=== PATIENT | female | born 1940 | race Caucasian/White ===

== ENCOUNTER 2017-10-15 12:40 | Inpatient (IN) ==
[2017-10-15] MEDS ORDERED: methylPREDNISolone SOD SUC 125 MG/2 ML VIAL IV STA (16:57)
[2017-10-15] MEDS ORDERED: LEVOFLOXACIN INJ 500 MG in PREMIX 1 EACH IV STA (16:57)
[2017-10-15] MEDS: ALBUTEROL 2.5 MG/3 ML NEB RESP TX SCH (17:11)
[2017-10-15] MEDS ORDERED: LEVOFLOXACIN INJ 100 ML IV ONE (17:20)
[2017-10-15 17:21] LABS: Basophils % 0.2 % (0.0-0.8); Eosinophils # 0.1 10*3/uL (0.0-0.87); Eosinophils % 0.7 % (0.00-10.9); Hematocrit 31.3 VOL% (35.7-47.0); Hemoglobin 9.1 GM/DL (12.0-16.0); Immature Granulocytes % 4.3 %; Immature Granulocytes Absolute 0.69 #; Lymphocytes % 6.1 % (21.3-54.2); Mean Corpuscular HGB Conc 29.1 GM/DL (32-36); Mean Corpuscular Hemoglobin 23 PG (27-34); Mean Corpuscular Volume 80.5 FL (87-102); Mean Platelet Volume 9.9 FL (9.6-12.0); Monocytes # 0.5 10*3/uL (0.11-0.8); Monocytes % 3.4 % (1.7-12.7); NRBC # 0.03 10*3/uL; Neutrophils # 13.7 10*3/uL (1.4-7.4); Neutrophils % 85.3 % (38.7-73.9); Platelet Count 275 T/CUMM (130-400); Red Blood Count 3.89 MC/CUMM (3.8-5.5); Red Cell Distribution Width 18.3 % (9.3-17.3)
[2017-10-15] MEDS ORDERED: methylPREDNISolone SOD SUC 125 MG/2 ML VIAL ONE (17:21)
[2017-10-15 17:32] LABS: Alanine Aminotransferase 44 U/L (13-56); Albumin 3.4 G/DL (3.4-5.0); Alkaline Phosphatase 101 U/L (45-117); Aspartate Amino Transferase 85 U/L (0-37); Bilirubin,Total < 0.39 MG/DL (0.2-1.0); Blood Urea Nitrogen 18 MG/DL (7-18); Calcium 7.9 MG/DL (8.5-10.1); Potassium 3.5 MMOL/L (3.5-5.1); Sodium 136 MMOL/L (136-145); Troponin I Only < 0.015 NG/ML (0.00-0.045)
[2017-10-15] MEDS ORDERED: DEXTROSE 50% 25 GM/50 ML SYRINGE IV ONE (17:38)
[2017-10-15] MEDS ORDERED: DEXTROSE 50% 25 GM/50 ML VIAL IV STA (17:38)
[2017-10-15 17:40] LABS: Glucose 40 MG/DL (74-106)
[2017-10-15] MEDS ORDERED: GLUCAGON 1 MG VIAL IM PRN (18:25)
[2017-10-15] MEDS ORDERED: DEXTROSE 50% 25 GM/50 ML VIAL IV PRN (18:25)
[2017-10-15] MEDS ORDERED: ONDANSETRON 4 MG/2 ML VIAL IV PRN (18:25)
[2017-10-15] MEDS ORDERED: ALBUTEROL 2.5 MG/3 ML NEB RESP TX PRN (18:25)
[2017-10-15] MEDS: MAGNESIUM OXIDE 400 MG TABLET PO SCH (22:44)
[2017-10-15] MEDS: GABAPENTIN 100 MG CAPSULE PO SCH (22:44)
[2017-10-15] MEDS: SERTRALINE 100 MG TABLET PO SCH (22:45)
[2017-10-15] MEDS: INSULIN LISPRO 100 UNIT/ML SUBCUT SCH (22:45)
[2017-10-15] MEDS: SODIUM CHLORIDE 0.9% 1,000 ML IV SCH (22:45)
[2017-10-15] MEDS: DOCUSATE SODIUM 100 MG CAPSULE PO SCH (22:46)
[2017-10-15] MEDS: methylPREDNISolone SOD SUC 40 MG/1 ML VIAL IV SCH (22:46)
[2017-10-15] MEDS: traMADol 50 MG TABLET PO PRN (22:47)
[2017-10-16] MEDS: FLUTICASONE/SALMETEROL 500-50 DISKUS 14 DOSE INH SCH ×3 (00:07→21:48)
[2017-10-16] MEDS: ALBUTEROL/IPRATROPIUM 3 ML NEB RESP TX SCH ×4 (04:07→20:06)
[2017-10-16] MEDS: methylPREDNISolone SOD SUC 40 MG/1 ML VIAL IV SCH ×3 (05:56→21:49)
[2017-10-16 06:22] LABS: Basophils % 0.2 % (0.0-0.8); Hemoglobin 7.7 GM/DL (12.0-16.0); Immature Granulocytes % 6.1 %; Lymphocytes # 0.4 10*3/uL (1.4-4.0); Lymphocytes % 5.7 % (21.3-54.2); Mean Corpuscular HGB Conc 29.6 GM/DL (32-36); Mean Corpuscular Hemoglobin 23 PG (27-34); Mean Corpuscular Volume 78.3 FL (87-102); Monocytes # 0.1 10*3/uL (0.11-0.8); Monocytes % 1.5 % (1.7-12.7); Neutrophils # 5.7 10*3/uL (1.4-7.4); Neutrophils % 86.5 % (38.7-73.9); Platelet Count 187 T/CUMM (130-400); Red Blood Count 3.32 MC/CUMM (3.8-5.5); Red Cell Distribution Width 18.1 % (9.3-17.3); White Blood Count 6.5 T/CUMM (4-12)
[2017-10-16 06:41] LABS: Calcium 7.8 MG/DL (8.5-10.1); Osmolality,Calculated 289.1 MOS/KG (273-304); Potassium 4.7 MMOL/L (3.5-5.1)
[2017-10-16 07:03] LABS: Anisocytosis 1+; Band Neutrophils 3 % (0-10); Lymphocytes 3 % (20-55); Metamyelocytes 3 %; Microcytosis 1+; Nucleated Red Blood Cells 1 (0-5); Segmented Neutrophils 85 % (50-85); Tear Drop Cells Few; Total Cells Counted 100
[2017-10-16 07:04] LABS: Hypochromasia 1+; Ovalocytes Slight; Platelet Estimate Adequate
[2017-10-16 08:19] LABS: % Iron Saturation 9.4 % (18-50)
[2017-10-16] MEDS: INSULIN LISPRO 100 UNIT/ML SUBCUT SCH ×4 (08:46→21:51)
[2017-10-16] MEDS: SODIUM CHLORIDE 0.9% 1,000 ML IV SCH ×2 (08:46→21:57)
[2017-10-16] MEDS: MAGNESIUM OXIDE 400 MG TABLET PO SCH ×2 (08:47→21:48)
[2017-10-16] MEDS: GABAPENTIN 100 MG CAPSULE PO SCH ×3 (08:47→21:50)
[2017-10-16] MEDS: DOCUSATE SODIUM 100 MG CAPSULE PO SCH ×2 (08:47→21:49)
[2017-10-16] MEDS: PANTOPRAZOLE 40 MG TABLET PO SCH (08:47)
[2017-10-16] MEDS: ACETAMINOPHEN 325 MG TABLET PO PRN (08:48)
[2017-10-16] MEDS: traMADol 50 MG TABLET PO PRN (13:09)
[2017-10-16 14:49] LABS: Folate 8.8 NG/ML (5.4-24.0)
[2017-10-16] MEDS: LEVOFLOXACIN INJ 250 MG in PREMIX 1 EACH IV SCH (15:58)
[2017-10-16] MEDS: AMITRIPTYLINE 25 MG TABLET PO SCH (21:48)
[2017-10-16] MEDS: PERPHENAZINE 4 MG TABLET PO SCH (21:49)
[2017-10-16] MEDS: SERTRALINE 100 MG TABLET PO SCH (21:50)
[2017-10-17] MEDS: ALBUTEROL/IPRATROPIUM 3 ML NEB RESP TX SCH ×4 (01:51→19:45)
[2017-10-17] MEDS: methylPREDNISolone SOD SUC 40 MG/1 ML VIAL IV SCH ×3 (06:08→21:32)
[2017-10-17 07:23] LABS: Basophils % 0.1 % (0.0-0.8); Hematocrit 26.8 VOL% (35.7-47.0); Immature Granulocytes % 5.8 %; Immature Granulocytes Absolute 0.42 #; Lymphocytes # 0.6 10*3/uL (1.4-4.0); Lymphocytes % 7.7 % (21.3-54.2); Mean Corpuscular HGB Conc 29.9 GM/DL (32-36); Mean Corpuscular Hemoglobin 24 PG (27-34); Mean Corpuscular Volume 78.8 FL (87-102); Monocytes # 0.2 10*3/uL (0.11-0.8); NRBC # 0.02 10*3/uL; Neutrophils # 6.1 10*3/uL (1.4-7.4); Neutrophils % 83.4 % (38.7-73.9); Platelet Count 225 T/CUMM (130-400); Red Cell Distribution Width 17.9 % (9.3-17.3); White Blood Count 7.3 T/CUMM (4-12)
[2017-10-17 07:48] LABS: Calcium 8.8 MG/DL (8.5-10.1); Potassium 4.4 MMOL/L (3.5-5.1)
[2017-10-17 07:54] LABS: Band Neutrophils 3 % (0-10); Elliptocytes Few; Giant Platelets Few; Hypochromasia 1+; Lymphocytes 4 % (20-55); Microcytosis Slight; Platelet Estimate Adequate; Segmented Neutrophils 89 % (50-85); Total Cells Counted 100
[2017-10-17] MEDS: DOCUSATE SODIUM 100 MG CAPSULE PO SCH ×2 (08:17→20:40)
[2017-10-17] MEDS: MAGNESIUM OXIDE 400 MG TABLET PO SCH ×2 (08:17→20:40)
[2017-10-17] MEDS: AMITRIPTYLINE 25 MG TABLET PO SCH ×4 (08:17→20:41)
[2017-10-17] MEDS: INSULIN LISPRO 100 UNIT/ML SUBCUT SCH ×4 (08:17→20:43)
[2017-10-17] MEDS: GABAPENTIN 100 MG CAPSULE PO SCH ×3 (08:17→20:41)
[2017-10-17] MEDS: PANTOPRAZOLE 40 MG TABLET PO SCH (08:17)
[2017-10-17] MEDS: FLUTICASONE/SALMETEROL 500-50 DISKUS 14 DOSE INH SCH ×2 (08:18→20:44)
[2017-10-17] MEDS: PERPHENAZINE 4 MG TABLET PO SCH ×3 (08:23→20:40)
[2017-10-17] MEDS: ACETAMINOPHEN 325 MG TABLET PO PRN ×2 (09:09→20:41)
[2017-10-17] MEDS ORDERED: PHENOL 1.4% THROAT SPRAY 177 ML BOTTLE PO PRN (12:03)
[2017-10-17] MEDS: traMADol 50 MG TABLET PO PRN ×2 (12:08→16:58)
[2017-10-17] MEDS: LEVOFLOXACIN INJ 250 MG in PREMIX 1 EACH IV SCH (16:58)
[2017-10-17] MEDS: SODIUM CHLORIDE 0.9% 1,000 ML IV SCH (20:38)
[2017-10-17] MEDS: SERTRALINE 100 MG TABLET PO SCH (20:41)
[2017-10-18] MEDS: ALBUTEROL/IPRATROPIUM 3 ML NEB RESP TX SCH ×4 (00:34→20:06)
[2017-10-18] MEDS: methylPREDNISolone SOD SUC 40 MG/1 ML VIAL IV SCH ×3 (05:20→20:32)
[2017-10-18 06:56] LABS: Basophils % 0.1 % (0.0-0.8); Hematocrit 29.7 VOL% (35.7-47.0); Hemoglobin 8.6 GM/DL (12.0-16.0); Immature Granulocytes % 3.1 %; Immature Granulocytes Absolute 0.22 #; Lymphocytes # 0.8 10*3/uL (1.4-4.0); Lymphocytes % 10.8 % (21.3-54.2); Mean Corpuscular Hemoglobin 23 PG (27-34); Mean Corpuscular Volume 80.1 FL (87-102); Mean Platelet Volume 10.2 FL (9.6-12.0); Monocytes # 0.3 10*3/uL (0.11-0.8); Monocytes % 3.6 % (1.7-12.7); Neutrophils # 5.8 10*3/uL (1.4-7.4); Neutrophils % 82.4 % (38.7-73.9); Platelet Count 208 T/CUMM (130-400); Red Blood Count 3.71 MC/CUMM (3.8-5.5); Red Cell Distribution Width 17.6 % (9.3-17.3)
[2017-10-18 07:20] LABS: Microcytosis Slight; Platelet Estimate Normal; Tear Drop Cells Few
[2017-10-18 07:22] LABS: Calcium 8.9 MG/DL (8.5-10.1); Osmolality,Calculated 283.2 MOS/KG (273-304); Potassium 4.6 MMOL/L (3.5-5.1)
[2017-10-18] MEDS: traMADol 50 MG TABLET PO PRN ×2 (10:07→20:28)
[2017-10-18] MEDS: MAGNESIUM OXIDE 400 MG TABLET PO SCH ×2 (10:09→20:28)
[2017-10-18] MEDS: GABAPENTIN 100 MG CAPSULE PO SCH ×3 (10:09→20:28)
[2017-10-18] MEDS: DOCUSATE SODIUM 100 MG CAPSULE PO SCH ×2 (10:09→20:31)
[2017-10-18] MEDS: PANTOPRAZOLE 40 MG TABLET PO SCH (10:09)
[2017-10-18] MEDS: FLUTICASONE/SALMETEROL 500-50 DISKUS 14 DOSE INH SCH ×2 (10:10→20:31)
[2017-10-18] MEDS: AMITRIPTYLINE 25 MG TABLET PO SCH ×4 (10:10→20:28)
[2017-10-18] MEDS: PERPHENAZINE 4 MG TABLET PO SCH ×3 (10:10→20:28)
[2017-10-18] MEDS: ACETAMINOPHEN 325 MG TABLET PO PRN (16:40)
[2017-10-18] MEDS: LEVOFLOXACIN INJ 250 MG in PREMIX 1 EACH IV SCH (16:41)
[2017-10-18] MEDS: CARBIDOPA/LEVODOPA 25-100 MG TABLET PO SCH ×2 (16:51→20:28)
[2017-10-18] MEDS: SODIUM CHLORIDE 0.9% 1,000 ML IV SCH (16:52)
[2017-10-18] MEDS: SERTRALINE 100 MG TABLET PO SCH (20:29)
[2017-10-18] MEDS: INSULIN GLARGINE 100 UNIT/ML SUBCUT SCH (20:30)
[2017-10-19] MEDS: ALBUTEROL/IPRATROPIUM 3 ML NEB RESP TX SCH ×4 (01:44→20:05)
[2017-10-19] MEDS: methylPREDNISolone SOD SUC 40 MG/1 ML VIAL IV SCH (09:15)
[2017-10-19] MEDS: FLUTICASONE/SALMETEROL 500-50 DISKUS 14 DOSE INH SCH ×2 (09:16→22:16)
[2017-10-19] MEDS: DOCUSATE SODIUM 100 MG CAPSULE PO SCH ×2 (09:16→22:14)
[2017-10-19] MEDS: PERPHENAZINE 4 MG TABLET PO SCH ×4 (09:16→22:14)
[2017-10-19] MEDS: AMITRIPTYLINE 25 MG TABLET PO SCH ×5 (09:16→22:16)
[2017-10-19] MEDS: MAGNESIUM OXIDE 400 MG TABLET PO SCH ×3 (09:16→22:14)
[2017-10-19] MEDS: CARBIDOPA/LEVODOPA 25-100 MG TABLET PO SCH ×4 (09:16→22:14)
[2017-10-19] MEDS: PANTOPRAZOLE 40 MG TABLET PO SCH ×2 (09:16→13:45)
[2017-10-19] MEDS: GABAPENTIN 100 MG CAPSULE PO SCH ×4 (09:16→22:15)
[2017-10-19] MEDS ORDERED: LIDOCAINE 2% 5 ML VIAL ONE (11:51)
[2017-10-19] MEDS ORDERED: PROPOFOL 200 MG/20 ML VIAL IV ONE (11:51)
[2017-10-19] MEDS: SODIUM CHLORIDE 0.9% 1,000 ML IV SCH (13:49)
[2017-10-19] MEDS: INSULIN REGULAR 100 UNIT/ML SUBCUT SCH ×2 (16:47→22:14)
[2017-10-19] MEDS: LEVOFLOXACIN INJ 250 MG in PREMIX 1 EACH IV SCH (16:47)
[2017-10-19] MEDS: traMADol 50 MG TABLET PO PRN (16:48)
[2017-10-19] MEDS: INSULIN GLARGINE 100 UNIT/ML SUBCUT SCH (22:14)
[2017-10-19] MEDS: SERTRALINE 100 MG TABLET PO SCH (22:14)
[2017-10-20] MEDS: ALBUTEROL/IPRATROPIUM 3 ML NEB RESP TX SCH ×2 (00:39→07:52)
[2017-10-20] MEDS: INSULIN REGULAR 100 UNIT/ML SUBCUT SCH ×2 (07:51→12:02)
[2017-10-20] MEDS: CARBIDOPA/LEVODOPA 25-100 MG TABLET PO SCH (08:48)
[2017-10-20] MEDS: methylPREDNISolone SOD SUC 40 MG/1 ML VIAL IV SCH (08:48)
[2017-10-20] MEDS: MAGNESIUM OXIDE 400 MG TABLET PO SCH (08:48)
[2017-10-20] MEDS: ACETAMINOPHEN 325 MG TABLET PO PRN (08:49)
[2017-10-20] MEDS: AMITRIPTYLINE 25 MG TABLET PO SCH ×2 (08:49→08:51)
[2017-10-20] MEDS: PERPHENAZINE 4 MG TABLET PO SCH (08:50)
[2017-10-20] MEDS: DOCUSATE SODIUM 100 MG CAPSULE PO SCH ×2 (08:50→08:53)
[2017-10-20] MEDS: PANTOPRAZOLE 40 MG TABLET PO SCH (08:50)
[2017-10-20] MEDS: GABAPENTIN 100 MG CAPSULE PO SCH (08:50)
[2017-10-20] MEDS: SODIUM CHLORIDE 0.9% 1,000 ML IV SCH (08:50)
[2017-10-20] MEDS: FLUTICASONE/SALMETEROL 500-50 DISKUS 14 DOSE INH SCH (08:57)
[2017-10-20] MEDS: traMADol 50 MG TABLET PO PRN (10:33)
[2017-10-20 11:24] VITALS: BP 124/72
== END 2017-10-20 13:30 | disposition home or self-care (01) | DRG 194 ==
LOC: N.ED 12:40 → N.EDINP 17:31 → N.5E 17:59
PROVIDERS: ADMIT Family Medicine; ATTEND Family Medicine

== ENCOUNTER 2020-02-05 10:20 | Inpatient (IN) ==
[2020-02-05] MEDS ORDERED: ACETAMINOPHEN 500 MG TABLET PO STA (11:54)
[2020-02-05 11:56] LABS: Basophils % 0.3 % (0.0-0.8); Eosinophils % 0.3 % (0.00-10.9); Hematocrit 31.2 VOL% (35.7-47.0); Hemoglobin 9.8 GM/DL (12.0-16.0); Immature Granulocytes % 1.6 %; Immature Granulocytes Absolute 0.18 #; Lymphocytes # 0.4 10*3/uL (1.4-4.0); Lymphocytes % 3.3 % (21.3-54.2); Mean Corpuscular HGB Conc 31.4 GM/DL (32-36); Mean Corpuscular Volume 92.9 FL (87-102); Mean Platelet Volume 10.8 FL (9.6-12.0); Monocytes % 3.5 % (1.7-12.7); NRBC # 0.02 10*3/uL; Platelet Count 155 T/CUMM (130-400); Red Blood Count 3.36 MC/CUMM (3.8-5.5); Red Cell Distribution Width 16.2 % (9.3-17.3); White Blood Count 11.1 T/CUMM (4-12)
[2020-02-05 12:24] LABS: Anisocytosis 2+; Band Neutrophils 27 % (0-10); Lymphocytes 5 % (20-55); Metamyelocytes 1 %; Platelet Estimate Normal; Segmented Neutrophils 64 % (50-85); Total Cells Counted 100
[2020-02-05 12:25] LABS: Macrocytosis Slight; Polychromasia Slight; Tear Drop Cells Few
[2020-02-05] MEDS ORDERED: LEVOFLOXACIN INJ 500 MG in PREMIX 1 EACH IV STA (13:21)
[2020-02-05] MEDS ORDERED: cefTRIAXone 1,000 MG in SODIUM CHLORIDE 0.9% 100 ML IV STA (13:26)
[2020-02-05] MEDS ORDERED: cefTRIAXone 1,000 MG in SYRINGE 1 EACH IV STA (13:45)
[2020-02-05 14:13] LABS: Alanine Aminotransferase < 9 U/L (13-56); Albumin 3.4 G/DL (3.4-5.0); Alkaline Phosphatase 92 U/L (45-117); Aspartate Amino Transferase 7 U/L (0-37); Bilirubin,Total < 0.39 MG/DL (0.2-1.0); Blood Urea Nitrogen 22 MG/DL (7-18); Calcium 9.2 MG/DL (8.5-10.1); Estimated Glom Filtration Rate 24 ML/MIN; Glucose 245 MG/DL (74-106); Osmolality,Calculated 278.2 MOS/KG (273-304); Total Protein 6.9 G/DL (6.4-8.3)
[2020-02-05 14:26] LABS: Apearance,Urine CLOUDY (Clear); Bacteria,Urine Few /HPF (Few); Bilirubin,Urine Negative (Negative); Blood, Urine Small mg/dL (Negative); Glucose,Urine (UA) Negative (Negative); Ketones,Urine Negative (Negative); Nitrite,Urine Negative (Negative); Protein,Urine 30 MG/DL; RBC,Urine 24 /HPF (0-4); Urine Color Yellow (Yellow); Urine Specific Gravity 1.012 (1.001-1.035); Urine Urobilinogen < 2.0 EU/DL (0.2-1.0); WBC,Urine 451 /HPF (0-6)
[2020-02-05] MEDS ORDERED: SODIUM CHLORIDE 0.9% 1,000 ML IV STA (14:50)
[2020-02-05] MEDS ORDERED: GLUCAGON 1 MG VIAL IM PRN ×2 (15:56→17:03)
[2020-02-05] MEDS ORDERED: DEXTROSE 50% 25 GM/50 ML VIAL IV PRN ×2 (15:56→17:03)
[2020-02-05] MEDS: methylPREDNISolone SOD SUC 40 MG/1 ML VIAL IV SCH (16:17)
[2020-02-05] MEDS: INSULIN REGULAR 100 UNIT/ML SUBCUT SCH ×2 (17:02→20:23)
[2020-02-05] MEDS ORDERED: ONDANSETRON 4 MG/2 ML VIAL IV PRN (17:03)
[2020-02-05] MEDS: INSULIN LISPRO 100 UNIT/ML SUBCUT SCH ×2 (17:30→20:23)
[2020-02-05] MEDS: SODIUM CHLORIDE 0.9% 1,000 ML IV SCH (18:05)
[2020-02-05] MEDS: DOCUSATE SODIUM 100 MG CAPSULE PO SCH (20:23)
[2020-02-06] MEDS: methylPREDNISolone SOD SUC 40 MG/1 ML VIAL IV SCH ×3 (00:15→17:52)
[2020-02-06] MEDS: SODIUM CHLORIDE 0.9% 1,000 ML IV SCH ×2 (00:17→17:53)
[2020-02-06] MEDS: ACETAMINOPHEN 325 MG TABLET PO PRN ×5 (03:45→23:30)
[2020-02-06 05:29] LABS: Basophils % 0.2 % (0.0-0.8); Hematocrit 28.2 VOL% (35.7-47.0); Hemoglobin 8.4 GM/DL (12.0-16.0); Immature Granulocytes % 1.6 %; Immature Granulocytes Absolute 0.18 #; Lymphocytes # 0.6 10*3/uL (1.4-4.0); Lymphocytes % 5.1 % (21.3-54.2); Mean Corpuscular HGB Conc 29.8 GM/DL (32-36); Mean Corpuscular Volume 97.9 FL (87-102); Monocytes % 1.6 % (1.7-12.7); Neutrophils % 91.5 % (38.7-73.9); Platelet Count 146 T/CUMM (130-400); Red Blood Count 2.88 MC/CUMM (3.8-5.5); Red Cell Distribution Width 16.5 % (9.3-17.3)
[2020-02-06 05:50] LABS: Calcium 7.4 MG/DL (8.5-10.1); Osmolality,Calculated 283.7 MOS/KG (273-304)
[2020-02-06 05:51] LABS: Band Neutrophils 2 % (0-10); Hypochromasia 1+; Lymphocytes 4 % (20-55); Ovalocytes Slight; Segmented Neutrophils 94 % (50-85); Total Cells Counted 100
[2020-02-06] MEDS ORDERED: glipiZIDE 10 MG TABLET PO SCH (07:30)
[2020-02-06] MEDS ORDERED: PANTOPRAZOLE 40 MG TABLET PO SCH (09:00)
[2020-02-06] MEDS ORDERED: AZITHROMYCIN 250 MG TABLET PO SCH (09:00)
[2020-02-06] MEDS ORDERED: cefTRIAXone 500 MG in SYRINGE 1 EACH IV SCH (09:00)
[2020-02-06] MEDS ORDERED: FERROUS SULFATE 325 MG TABLET PO SCH (09:00)
[2020-02-06] MEDS: INSULIN REGULAR 100 UNIT/ML SUBCUT SCH ×4 (09:58→21:23)
[2020-02-06] MEDS: DOCUSATE SODIUM 100 MG CAPSULE PO SCH ×2 (09:59→20:40)
[2020-02-06] MEDS: CARBIDOPA/LEVODOPA 25-100 MG TABLET PO SCH ×3 (09:59→20:40)
[2020-02-06] MEDS: BUDESONIDE/FORMOTEROL 80-4.5 INHALER 6.9 GM INH SCH ×2 (10:01→20:40)
[2020-02-06] MEDS ORDERED: predniSONE 10 MG TABLET PO ONE (21:00)
[2020-02-06] MEDS ORDERED: SERTRALINE 100 MG TABLET PO SCH (21:00)
[2020-02-06] MEDS ORDERED: CEFUROXIME 250 MG TABLET PO SCH (21:00)
[2020-02-06] MEDS ORDERED: MAGNESIUM OXIDE 400 MG TABLET PO ONE (23:30)
[2020-02-07] MEDS ORDERED: MAGNESIUM OXIDE 400 MG TABLET PO SCH ×2 (06:00→09:00)
[2020-02-07 08:02] VITALS: BP 119/81
[2020-02-07] MEDS ORDERED: predniSONE 10 MG TABLET PO SCH (09:00)
== END 2020-02-07 08:10 | disposition home or self-care (01) | DRG 191 ==
LOC: N.ED 10:20 → N.EDINP 13:25 → N.2E 16:53
PROVIDERS: ADMIT Internal Medicine; ATTEND Internal Medicine

== ENCOUNTER 2020-07-02 14:26 | Inpatient (IN) ==
[2020-07-02] MEDS ORDERED: SODIUM CHLORIDE 0.9% 2,150 ML IV ONE (15:47)
[2020-07-02 15:51] LABS: Basophils % 0.3 % (0.0-0.8); Eosinophils % 0.3 % (0.00-10.9); Hematocrit 28.8 VOL% (35.7-47.0); Hemoglobin 9.2 GM/DL (12.0-16.0); Immature Granulocytes Absolute 0.12 #; Lymphocytes # 0.3 10*3/uL (1.4-4.0); Lymphocytes % 2.8 % (21.3-54.2); Mean Corpuscular HGB Conc 31.9 GM/DL (32-36); Mean Corpuscular Volume 91.7 FL (87-102); Mean Platelet Volume 11.4 FL (9.6-12.0); Monocytes % 2.2 % (1.7-12.7); Neutrophils % 93.4 % (38.7-73.9); Platelet Count 106 T/CUMM (130-400); Red Blood Count 3.14 MC/CUMM (3.8-5.5); Red Cell Distribution Width 16.7 % (9.3-17.3); White Blood Count 11.6 T/CUMM (4-12)
[2020-07-02] MEDS ORDERED: cefTRIAXone 1,000 MG VIAL ONE (15:54)
[2020-07-02] MEDS ORDERED: SODIUM CHLORIDE 0.9% 100 ML IV ONE (15:55)
[2020-07-02] MEDS: cefTRIAXone 1,000 MG in SYRINGE 1 EACH IV SCH (16:04)
[2020-07-02 16:06] LABS: Alanine Aminotransferase 16 U/L (13-56); Albumin 3.4 G/DL (3.4-5.0); Alkaline Phosphatase 82 U/L (45-117); Aspartate Amino Transferase 18 U/L (0-37); Bilirubin,Total < 0.39 MG/DL (0.2-1.0); Blood Urea Nitrogen 39 MG/DL (7-18); Calcium 8.7 MG/DL (8.5-10.1); Estimated Glom Filtration Rate 24 ML/MIN; Osmolality,Calculated 298.5 MOS/KG (273-304); Total Protein 6.6 G/DL (6.4-8.3)
[2020-07-02 16:11] LABS: Glucose 563 MG/DL (74-106)
[2020-07-02] MEDS ORDERED: INSULIN LISPRO 100 UNIT/ML SUBCUT STA (16:30)
[2020-07-02 16:31] LABS: Band Neutrophils 1 % (0-10); Lymphocytes 6 % (20-55); Macrocytosis 1+; Platelet Estimate Adequate; Polychromasia Few; Segmented Neutrophils 93 % (50-85); Total Cells Counted 100
[2020-07-02 16:35] LABS: Bacteria,Urine Occasional /HPF (Few); Bilirubin,Urine Negative (Negative); Blood, Urine Negative (Negative); Glucose,Urine (UA) >=500 mg/dL (Negative); Ketones,Urine Negative (Negative); Mucus,Urine Occasional /LPF (Occasional); Nitrite,Urine Negative (Negative); Protein,Urine Negative; RBC,Urine 5 /HPF (0-4); Squamous Epithelial Cell,Urine Occasional /HPF (0-10); Urine Appearance CLEAR (Clear); Urine Color Yellow (Yellow); Urine Specific Gravity 1.016 (1.001-1.035); Urine Urobilinogen < 2.0 EU/DL (0.2-1.0); WBC,Urine 38 /HPF (0-6)
[2020-07-02] MEDS ORDERED: DEXTROSE 50% 25 GM/50 ML VIAL IV PRN (16:42)
[2020-07-02] MEDS ORDERED: GLUCAGON 1 MG VIAL IM PRN (16:42)
[2020-07-02] MEDS ORDERED: ONDANSETRON 4 MG/2 ML VIAL IV PRN (16:42)
[2020-07-02] MEDS ORDERED: ALBUTEROL/IPRATROPIUM 3 ML NEB RESP TX PRN (16:47)
[2020-07-02] MEDS: AZITHROMYCIN INJ 500 MG in SODIUM CHLORIDE 0.9% 250 ML IV SCH (17:00)
[2020-07-02] MEDS: SODIUM CHLORIDE 0.9% 1,000 ML IV SCH (19:35)
[2020-07-02] MEDS: ALBUTEROL/IPRATROPIUM 3 ML NEB RESP TX SCH (19:42)
[2020-07-02] MEDS ORDERED: INFLUENZA VIRUS VACCINE 0.5 ML SYRINGE IM ONE (20:26)
[2020-07-02] MEDS ORDERED: PERPHENAZINE 4 MG TABLET PO SCH (21:00)
[2020-07-02] MEDS: methylPREDNISolone SOD SUC 40 MG/1 ML VIAL IV SCH (21:02)
[2020-07-02] MEDS: ENOXAPARIN 40 MG/0.4 ML SYRINGE SUBCUT SCH (21:04)
[2020-07-02] MEDS: AMITRIPTYLINE 25 MG TABLET PO SCH (21:05)
[2020-07-02] MEDS: CARBIDOPA/LEVODOPA 25-100 MG TABLET PO SCH (21:06)
[2020-07-02] MEDS: DICYCLOMINE 10 MG CAPSULE PO SCH (21:06)
[2020-07-02] MEDS: GABAPENTIN 100 MG CAPSULE PO SCH (21:06)
[2020-07-02] MEDS: SERTRALINE 100 MG TABLET PO SCH (21:06)
[2020-07-02] MEDS: traMADol 50 MG TABLET PO PRN (21:07)
[2020-07-02] MEDS: DOCUSATE SODIUM 100 MG CAPSULE PO SCH (21:07)
[2020-07-02] MEDS: INSULIN LISPRO 100 UNIT/ML SUBCUT SCH (21:07)
[2020-07-02] MEDS: PERPHENAZINE 4 MG TABLET PO SCH (21:14)
[2020-07-03] MEDS: ALBUTEROL/IPRATROPIUM 3 ML NEB RESP TX SCH ×4 (01:01→19:35)
[2020-07-03] MEDS: SODIUM CHLORIDE 0.9% 1,000 ML IV SCH ×2 (05:28→17:09)
[2020-07-03] MEDS: methylPREDNISolone SOD SUC 40 MG/1 ML VIAL IV SCH ×3 (05:28→20:54)
[2020-07-03 05:54] LABS: Basophils % 0.1 % (0.0-0.8); Eosinophils % 0.1 % (0.00-10.9); Hematocrit 27.3 VOL% (35.7-47.0); Hemoglobin 8.5 GM/DL (12.0-16.0); Immature Granulocytes % 1.3 %; Immature Granulocytes Absolute 0.16 #; Lymphocytes # 0.7 10*3/uL (1.4-4.0); Lymphocytes % 5.7 % (21.3-54.2); Mean Corpuscular HGB Conc 31.1 GM/DL (32-36); Mean Corpuscular Volume 93.5 FL (87-102); Mean Platelet Volume 10.1 FL (9.6-12.0); Neutrophils % 90.8 % (38.7-73.9); Platelet Count 155 T/CUMM (130-400); Red Blood Count 2.92 MC/CUMM (3.8-5.5); Red Cell Distribution Width 17.1 % (9.3-17.3); White Blood Count 12.6 T/CUMM (4-12)
[2020-07-03 06:16] LABS: Hypochromasia 1+; Lymphocytes 10 % (20-55); Microcytosis 1+; Platelet Estimate Adequate; Segmented Neutrophils 88 % (50-85); Total Cells Counted 100
[2020-07-03 06:17] LABS: Ovalocytes Slight
[2020-07-03 06:27] LABS: Calcium 8.2 MG/DL (8.5-10.1); Osmolality,Calculated 292.7 MOS/KG (273-304)
[2020-07-03] MEDS: DOCUSATE SODIUM 100 MG CAPSULE PO SCH ×2 (09:12→20:48)
[2020-07-03] MEDS: INSULIN LISPRO 100 UNIT/ML SUBCUT SCH ×4 (09:12→20:47)
[2020-07-03] MEDS: PANTOPRAZOLE 40 MG TABLET PO SCH (09:12)
[2020-07-03] MEDS: AMITRIPTYLINE 25 MG TABLET PO SCH ×3 (09:12→20:48)
[2020-07-03] MEDS: GABAPENTIN 100 MG CAPSULE PO SCH ×3 (09:12→20:48)
[2020-07-03] MEDS: glipiZIDE 10 MG TABLET PO SCH (09:12)
[2020-07-03] MEDS: CARBIDOPA/LEVODOPA 25-100 MG TABLET PO SCH ×3 (09:12→20:48)
[2020-07-03] MEDS: PERPHENAZINE 4 MG TABLET PO SCH ×3 (11:08→20:49)
[2020-07-03] MEDS: AZITHROMYCIN INJ 500 MG in SODIUM CHLORIDE 0.9% 250 ML IV SCH (17:03)
[2020-07-03] MEDS: cefTRIAXone 1,000 MG in SYRINGE 1 EACH IV SCH (17:03)
[2020-07-03] MEDS: ENOXAPARIN 40 MG/0.4 ML SYRINGE SUBCUT SCH (17:04)
[2020-07-03] MEDS: ACETAMINOPHEN 325 MG TABLET PO PRN (18:12)
[2020-07-03] MEDS: SERTRALINE 100 MG TABLET PO SCH (20:48)
[2020-07-03] MEDS: traMADol 50 MG TABLET PO PRN (20:48)
[2020-07-03] MEDS: DICYCLOMINE 10 MG CAPSULE PO SCH (20:48)
[2020-07-04] MEDS: ALBUTEROL/IPRATROPIUM 3 ML NEB RESP TX SCH ×4 (00:40→18:35)
[2020-07-04] MEDS: SODIUM CHLORIDE 0.9% 1,000 ML IV SCH ×2 (03:28→14:51)
[2020-07-04] MEDS: methylPREDNISolone SOD SUC 40 MG/1 ML VIAL IV SCH ×3 (05:30→21:00)
[2020-07-04] MEDS: DOCUSATE SODIUM 100 MG CAPSULE PO SCH ×2 (08:33→21:00)
[2020-07-04] MEDS: PANTOPRAZOLE 40 MG TABLET PO SCH (08:33)
[2020-07-04] MEDS: CARBIDOPA/LEVODOPA 25-100 MG TABLET PO SCH ×3 (08:33→21:00)
[2020-07-04] MEDS: AMITRIPTYLINE 25 MG TABLET PO SCH ×3 (08:33→21:00)
[2020-07-04] MEDS: INSULIN LISPRO 100 UNIT/ML SUBCUT SCH ×4 (08:34→21:00)
[2020-07-04] MEDS: GABAPENTIN 100 MG CAPSULE PO SCH ×3 (08:34→21:00)
[2020-07-04] MEDS: glipiZIDE 10 MG TABLET PO SCH (08:51)
[2020-07-04] MEDS: ACETAMINOPHEN 325 MG TABLET PO PRN (08:51)
[2020-07-04] MEDS: PERPHENAZINE 4 MG TABLET PO SCH ×3 (09:06→21:01)
[2020-07-04] MEDS: traMADol 50 MG TABLET PO PRN ×2 (11:06→18:08)
[2020-07-04 12:02] LABS: Basophils % 0.1 % (0.0-0.8); Hematocrit 28.5 VOL% (35.7-47.0); Hemoglobin 8.7 GM/DL (12.0-16.0); Immature Granulocytes % 1.9 %; Immature Granulocytes Absolute 0.15 #; Lymphocytes # 0.5 10*3/uL (1.4-4.0); Lymphocytes % 5.6 % (21.3-54.2); Mean Corpuscular HGB Conc 30.5 GM/DL (32-36); Mean Corpuscular Volume 94.4 FL (87-102); Mean Platelet Volume 10.7 FL (9.6-12.0); Monocytes % 2.3 % (1.7-12.7); Neutrophils % 90.1 % (38.7-73.9); Platelet Count 162 T/CUMM (130-400); Red Blood Count 3.02 MC/CUMM (3.8-5.5); Red Cell Distribution Width 17.2 % (9.3-17.3); White Blood Count 8.1 T/CUMM (4-12)
[2020-07-04 12:19] LABS: Osmolality,Calculated 291.4 MOS/KG (273-304)
[2020-07-04] MEDS: cefTRIAXone 1,000 MG in SYRINGE 1 EACH IV SCH (16:41)
[2020-07-04] MEDS: AZITHROMYCIN INJ 500 MG in SODIUM CHLORIDE 0.9% 250 ML IV SCH (16:41)
[2020-07-04] MEDS: ENOXAPARIN 40 MG/0.4 ML SYRINGE SUBCUT SCH (16:45)
[2020-07-04] MEDS: BUDESONIDE/FORMOTEROL 80-4.5 INHALER 6.9 GM INH PRN (18:14)
[2020-07-04] MEDS: SERTRALINE 100 MG TABLET PO SCH (21:00)
[2020-07-04] MEDS: DICYCLOMINE 10 MG CAPSULE PO SCH (21:00)
[2020-07-05] MEDS: ALBUTEROL/IPRATROPIUM 3 ML NEB RESP TX SCH ×4 (00:29→20:55)
[2020-07-05] MEDS: SODIUM CHLORIDE 0.9% 1,000 ML IV SCH ×2 (02:10→13:13)
[2020-07-05] MEDS: methylPREDNISolone SOD SUC 40 MG/1 ML VIAL IV SCH ×3 (05:37→20:54)
[2020-07-05 06:59] LABS: Basophils % 0.1 % (0.0-0.8); Hematocrit 25.8 VOL% (35.7-47.0); Hemoglobin 7.8 GM/DL (12.0-16.0); Immature Granulocytes % 2.5 %; Immature Granulocytes Absolute 0.17 #; Lymphocytes # 0.5 10*3/uL (1.4-4.0); Lymphocytes % 7.1 % (21.3-54.2); Mean Corpuscular HGB Conc 30.2 GM/DL (32-36); Mean Corpuscular Volume 93.8 FL (87-102); Mean Platelet Volume 10.4 FL (9.6-12.0); Monocytes % 3.3 % (1.7-12.7); Platelet Count 154 T/CUMM (130-400); Red Blood Count 2.75 MC/CUMM (3.8-5.5); Red Cell Distribution Width 17.2 % (9.3-17.3); White Blood Count 6.9 T/CUMM (4-12)
[2020-07-05 07:21] LABS: Calcium 6.6 MG/DL (8.5-10.1); Osmolality,Calculated 286.7 MOS/KG (273-304)
[2020-07-05] MEDS: BUDESONIDE/FORMOTEROL 80-4.5 INHALER 6.9 GM INH PRN (09:22)
[2020-07-05] MEDS: INSULIN LISPRO 100 UNIT/ML SUBCUT SCH ×4 (09:22→20:47)
[2020-07-05] MEDS: AMITRIPTYLINE 25 MG TABLET PO SCH ×3 (09:23→20:46)
[2020-07-05] MEDS: GABAPENTIN 100 MG CAPSULE PO SCH ×3 (09:23→20:46)
[2020-07-05] MEDS: CARBIDOPA/LEVODOPA 25-100 MG TABLET PO SCH ×3 (09:23→20:46)
[2020-07-05] MEDS: glipiZIDE 10 MG TABLET PO SCH (09:23)
[2020-07-05] MEDS: PERPHENAZINE 4 MG TABLET PO SCH ×3 (09:23→20:54)
[2020-07-05] MEDS: PANTOPRAZOLE 40 MG TABLET PO SCH (09:23)
[2020-07-05] MEDS: DOCUSATE SODIUM 100 MG CAPSULE PO SCH ×2 (09:27→20:46)
[2020-07-05] MEDS: traMADol 50 MG TABLET PO PRN (11:55)
[2020-07-05] MEDS ORDERED: MAGNESIUM SULF RIDER 2 GM in PREMIX 1 EACH IV PRN (14:30)
[2020-07-05] MEDS ORDERED: POTASSIUM CHLORIDE RIDER 10 MEQ in PREMIX 1 EACH IV PRN (14:30)
[2020-07-05] MEDS ORDERED: MAGNESIUM SULF RIDER 4 GM in PREMIX 1 EACH IV PRN (14:30)
[2020-07-05 15:24] LABS: Basophils % 0.1 % (0.0-0.8); Hematocrit 28.2 VOL% (35.7-47.0); Hemoglobin 8.8 GM/DL (12.0-16.0); Immature Granulocytes % 2.4 %; Immature Granulocytes Absolute 0.21 #; Lymphocytes # 0.8 10*3/uL (1.4-4.0); Lymphocytes % 8.7 % (21.3-54.2); Mean Corpuscular HGB Conc 31.2 GM/DL (32-36); Mean Corpuscular Volume 94.9 FL (87-102); Mean Platelet Volume 10.8 FL (9.6-12.0); Monocytes % 4.3 % (1.7-12.7); Neutrophils % 84.5 % (38.7-73.9); Platelet Count 197 T/CUMM (130-400); Red Blood Count 2.97 MC/CUMM (3.8-5.5); Red Cell Distribution Width 17.1 % (9.3-17.3); White Blood Count 8.8 T/CUMM (4-12)
[2020-07-05 15:29] LABS: Calcium 8.3 MG/DL (8.5-10.1); Osmolality,Calculated 278.5 MOS/KG (273-304)
[2020-07-05] MEDS: cefTRIAXone 1,000 MG in SYRINGE 1 EACH IV SCH (16:06)
[2020-07-05] MEDS: AZITHROMYCIN INJ 500 MG in SODIUM CHLORIDE 0.9% 250 ML IV SCH (16:09)
[2020-07-05] MEDS: ENOXAPARIN 40 MG/0.4 ML SYRINGE SUBCUT SCH (16:16)
[2020-07-05] MEDS: ACETAMINOPHEN 325 MG TABLET PO PRN (16:22)
[2020-07-05] MEDS: DICYCLOMINE 10 MG CAPSULE PO SCH (20:46)
[2020-07-05] MEDS: SERTRALINE 100 MG TABLET PO SCH (20:46)
[2020-07-06] MEDS: ALBUTEROL/IPRATROPIUM 3 ML NEB RESP TX SCH ×4 (02:05→19:25)
[2020-07-06] MEDS: methylPREDNISolone SOD SUC 40 MG/1 ML VIAL IV SCH ×3 (05:25→21:44)
[2020-07-06] MEDS: SODIUM CHLORIDE 0.9% 1,000 ML IV SCH (05:25)
[2020-07-06 07:09] LABS: Basophils % 0.1 % (0.0-0.8); Immature Granulocytes % 5.4 %; Immature Granulocytes Absolute 0.42 #; Lymphocytes # 0.7 10*3/uL (1.4-4.0); Lymphocytes % 8.5 % (21.3-54.2); Mean Corpuscular Volume 94.5 FL (87-102); Mean Platelet Volume 10.6 FL (9.6-12.0); Monocytes % 3.3 % (1.7-12.7); NRBC # 0.03 10*3/uL; Neutrophils % 82.7 % (38.7-73.9); Platelet Count 195 T/CUMM (130-400); Red Blood Count 3.07 MC/CUMM (3.8-5.5); Red Cell Distribution Width 17.2 % (9.3-17.3); White Blood Count 7.8 T/CUMM (4-12)
[2020-07-06 07:35] LABS: Band Neutrophils 3 % (0-10); Lymphocytes 8 % (20-55); Metamyelocytes 1 %; Platelet Estimate Normal; Segmented Neutrophils 86 % (50-85); Total Cells Counted 100
[2020-07-06 07:36] LABS: Anisocytosis 2+; Poikilocytosis Slight; Tear Drop Cells Few
[2020-07-06] MEDS ORDERED: GLYCOPYRROLATE 0.4 MG/2 ML VIAL IM ONE (08:00)
[2020-07-06] MEDS ORDERED: PROMETHAZINE 25 MG/1 ML VIAL IM ONE (08:00)
[2020-07-06] MEDS ORDERED: MEPERIDINE 50 MG/1 ML VIAL IM ONE (08:00)
[2020-07-06] MEDS: INSULIN LISPRO 100 UNIT/ML SUBCUT SCH ×4 (08:07→21:44)
[2020-07-06] MEDS ORDERED: LIDOCAINE 2% VISCOUS 100 ML BOTTLE SWISH/SPIT ONE (08:30)
[2020-07-06] MEDS ORDERED: MIDAZOLAM 2 MG/2 ML VIAL IV ONE (08:30)
[2020-07-06] MEDS ORDERED: LIDOCAINE 2% 20 ML VIAL RESP TX ONE (08:30)
[2020-07-06] MEDS ORDERED: LIDOCAINE 1% 20 ML VIAL MISC INJ ONE (08:30)
[2020-07-06] MEDS ORDERED: MIDAZOLAM 2 MG/2 ML VIAL ONE (10:19)
[2020-07-06 11:24] LABS: Calcium 8.2 MG/DL (8.5-10.1); Osmolality,Calculated 284.7 MOS/KG (273-304)
[2020-07-06] MEDS: glipiZIDE 10 MG TABLET PO SCH (12:10)
[2020-07-06] MEDS: AMITRIPTYLINE 25 MG TABLET PO SCH ×3 (12:10→21:43)
[2020-07-06] MEDS: PANTOPRAZOLE 40 MG TABLET PO SCH (12:10)
[2020-07-06] MEDS: DOCUSATE SODIUM 100 MG CAPSULE PO SCH ×2 (12:10→21:44)
[2020-07-06] MEDS: GABAPENTIN 100 MG CAPSULE PO SCH ×3 (12:10→21:44)
[2020-07-06] MEDS: PERPHENAZINE 4 MG TABLET PO SCH ×3 (12:10→21:44)
[2020-07-06] MEDS: CARBIDOPA/LEVODOPA 25-100 MG TABLET PO SCH ×3 (12:10→21:44)
[2020-07-06] MEDS: DORNASE ALFA 2.5 MG/2.5 ML VIAL RESP TX SCH ×2 (13:25→19:25)
[2020-07-06] MEDS: ENOXAPARIN 40 MG/0.4 ML SYRINGE SUBCUT SCH (18:30)
[2020-07-06] MEDS: cefTRIAXone 1,000 MG in SYRINGE 1 EACH IV SCH (18:30)
[2020-07-06] MEDS: AZITHROMYCIN INJ 500 MG in SODIUM CHLORIDE 0.9% 250 ML IV SCH (18:30)
[2020-07-06] MEDS: DICYCLOMINE 10 MG CAPSULE PO SCH (21:44)
[2020-07-06] MEDS: SERTRALINE 100 MG TABLET PO SCH (21:44)
[2020-07-06] MEDS: ACETAMINOPHEN 325 MG TABLET PO PRN (22:52)
[2020-07-07] MEDS: ALBUTEROL/IPRATROPIUM 3 ML NEB RESP TX SCH ×4 (00:50→19:45)
[2020-07-07] MEDS: methylPREDNISolone SOD SUC 40 MG/1 ML VIAL IV SCH ×3 (06:08→21:09)
[2020-07-07] MEDS: glipiZIDE 10 MG TABLET PO SCH (09:17)
[2020-07-07] MEDS: AMITRIPTYLINE 25 MG TABLET PO SCH ×3 (09:18→21:08)
[2020-07-07] MEDS: CARBIDOPA/LEVODOPA 25-100 MG TABLET PO SCH ×3 (09:18→21:07)
[2020-07-07] MEDS: PANTOPRAZOLE 40 MG TABLET PO SCH (09:18)
[2020-07-07] MEDS: GABAPENTIN 100 MG CAPSULE PO SCH ×3 (09:18→21:07)
[2020-07-07] MEDS: DOCUSATE SODIUM 100 MG CAPSULE PO SCH ×2 (09:18→21:07)
[2020-07-07] MEDS: INSULIN LISPRO 100 UNIT/ML SUBCUT SCH ×4 (09:18→21:08)
[2020-07-07] MEDS: PERPHENAZINE 4 MG TABLET PO SCH ×3 (09:20→21:09)
[2020-07-07] MEDS: SODIUM CHLORIDE 0.9% 1,000 ML IV SCH (12:51)
[2020-07-07] MEDS: traMADol 50 MG TABLET PO PRN (14:34)
[2020-07-07] MEDS: DORNASE ALFA 2.5 MG/2.5 ML VIAL RESP TX SCH ×2 (16:55→19:45)
[2020-07-07] MEDS: cefTRIAXone 1,000 MG in SYRINGE 1 EACH IV SCH (17:00)
[2020-07-07] MEDS: AZITHROMYCIN INJ 500 MG in SODIUM CHLORIDE 0.9% 250 ML IV SCH (17:01)
[2020-07-07] MEDS: ENOXAPARIN 40 MG/0.4 ML SYRINGE SUBCUT SCH (17:01)
[2020-07-07] MEDS: DICYCLOMINE 10 MG CAPSULE PO SCH (21:07)
[2020-07-07] MEDS: SERTRALINE 100 MG TABLET PO SCH (21:08)
[2020-07-08] MEDS: ALBUTEROL/IPRATROPIUM 3 ML NEB RESP TX SCH ×2 (01:48→07:32)
[2020-07-08] MEDS: methylPREDNISolone SOD SUC 40 MG/1 ML VIAL IV SCH (04:20)
[2020-07-08] MEDS: DORNASE ALFA 2.5 MG/2.5 ML VIAL RESP TX SCH (08:16)
[2020-07-08] MEDS: DOCUSATE SODIUM 100 MG CAPSULE PO SCH (08:58)
[2020-07-08] MEDS: GABAPENTIN 100 MG CAPSULE PO SCH (08:58)
[2020-07-08] MEDS: CARBIDOPA/LEVODOPA 25-100 MG TABLET PO SCH (08:59)
[2020-07-08] MEDS: INSULIN LISPRO 100 UNIT/ML SUBCUT SCH ×2 (08:59→12:06)
[2020-07-08] MEDS: glipiZIDE 10 MG TABLET PO SCH (08:59)
[2020-07-08] MEDS: ACETAMINOPHEN 325 MG TABLET PO PRN (08:59)
[2020-07-08] MEDS: PANTOPRAZOLE 40 MG TABLET PO SCH (08:59)
[2020-07-08] MEDS: AMITRIPTYLINE 25 MG TABLET PO SCH (08:59)
[2020-07-08] MEDS: PERPHENAZINE 4 MG TABLET PO SCH (09:00)
[2020-07-08 11:11] VITALS: BP 142/75
== END 2020-07-08 12:45 | disposition home or self-care (01) | DRG 871 ==
LOC: N.ED 14:26 → N.EDINP 16:42 → N.3E 19:09
PROVIDERS: ADMIT Family Medicine; ATTEND Family Medicine

== ENCOUNTER 2020-07-26 17:37 | Inpatient (IN) ==
[2020-07-26 18:20] LABS: Basophils % 0.1 % (0.0-0.8); Eosinophils # 0.1 10*3/uL (0.0-0.87); Eosinophils % 0.7 % (0.00-10.9); Hematocrit 24.6 VOL% (35.7-47.0); Immature Granulocytes % 11.7 %; Lymphocytes # 0.4 10*3/uL (1.4-4.0); Lymphocytes % 6.2 % (21.3-54.2); Mean Corpuscular HGB Conc 32.5 GM/DL (32-36); Mean Corpuscular Volume 89.5 FL (87-102); Mean Platelet Volume 11.6 FL (9.6-12.0); Monocytes % 3.2 % (1.7-12.7); NRBC # 0.03 10*3/uL; Neutrophils % 78.1 % (38.7-73.9); Platelet Count 148 T/CUMM (130-400); Red Blood Count 2.75 MC/CUMM (3.8-5.5); Red Cell Distribution Width 16.5 % (9.3-17.3); White Blood Count 6.8 T/CUMM (4-12)
[2020-07-26 18:38] LABS: Alanine Aminotransferase < 6 U/L (13-56); Albumin 2.4 G/DL (3.4-5.0); Alkaline Phosphatase 114 U/L (45-117); Aspartate Amino Transferase < 3 U/L (0-37); Bilirubin,Total < 0.39 MG/DL (0.2-1.0); Blood Urea Nitrogen 47 MG/DL (7-18); Calcium 7.3 MG/DL (8.5-10.1); Estimated Glom Filtration Rate 23 ML/MIN; Glucose 483 MG/DL (74-106); Osmolality,Calculated 292.8 MOS/KG (273-304); Total Protein 5.2 G/DL (6.4-8.3)
[2020-07-26 18:41] LABS: Band Neutrophils 11 % (0-10); Lymphocytes 6 % (20-55); Platelet Estimate Adequate; Segmented Neutrophils 80 % (50-85); Total Cells Counted 100
[2020-07-26] MEDS ORDERED: PIPERACILLIN/TAZOBACTAM 3,375 MG in SODIUM CHLORIDE 0.9% 100 ML IV STA (18:53)
[2020-07-26] MEDS ORDERED: LEVOFLOXACIN INJ 500 MG in PREMIX 1 EACH IV STA (18:53)
[2020-07-26] MEDS ORDERED: SODIUM CHLORIDE 0.9% 1,000 ML IV STA (18:56)
[2020-07-26] MEDS ORDERED: ALBUTEROL/IPRATROPIUM 3 ML NEB RESP TX STA (19:34)
[2020-07-26] MEDS ORDERED: ALBUTEROL/IPRATROPIUM 3 ML NEB RESP TX PRN (19:52)
[2020-07-26] MEDS ORDERED: ONDANSETRON 4 MG/2 ML VIAL IV PRN (19:52)
[2020-07-26] MEDS ORDERED: INSULIN REGULAR 100 UNIT/ML SUBCUT STA (20:14)
[2020-07-26] MEDS: SODIUM CHLORIDE 0.9% 1,000 ML IV SCH (22:25)
[2020-07-26] MEDS: DOCUSATE SODIUM 100 MG CAPSULE PO SCH (22:34)
[2020-07-26] MEDS: FLUCONAZOLE INJ 400 MG in PREMIX 1 EACH IV SCH (22:36)
[2020-07-27] MEDS: INSULIN LISPRO 100 UNIT/ML SUBCUT SCH ×4 (01:15→17:36)
[2020-07-27] MEDS ORDERED: PIPERACILLIN/TAZOBACTAM 3,375 MG in SODIUM CHLORIDE 0.9% 100 ML IV SCH (03:00)
[2020-07-27] MEDS ORDERED: DEXTROSE 50% 25 GM/50 ML VIAL IV ONE (03:27)
[2020-07-27] MEDS ORDERED: DEXTROSE 50% 25 GM/50 ML VIAL IV PRN (03:28)
[2020-07-27 05:08] LABS: Basophils % 0.3 % (0.0-0.8); Eosinophils # 0.1 10*3/uL (0.0-0.87); Eosinophils % 1.3 % (0.00-10.9); Hematocrit 26.9 VOL% (35.7-47.0); Hemoglobin 8.6 GM/DL (12.0-16.0); Immature Granulocytes % 11.8 %; Immature Granulocytes Absolute 0.74 #; Lymphocytes # 0.7 10*3/uL (1.4-4.0); Lymphocytes % 10.6 % (21.3-54.2); Mean Corpuscular Volume 90.3 FL (87-102); Mean Platelet Volume 12.3 FL (9.6-12.0); Monocytes % 3.5 % (1.7-12.7); NRBC # 0.02 10*3/uL; Neutrophils % 72.5 % (38.7-73.9); Platelet Count 136 T/CUMM (130-400); Red Blood Count 2.98 MC/CUMM (3.8-5.5); Red Cell Distribution Width 16.5 % (9.3-17.3); White Blood Count 6.3 T/CUMM (4-12)
[2020-07-27 05:24] LABS: Alanine Aminotransferase < 6 U/L (13-56); Albumin 2.3 G/DL (3.4-5.0); Alkaline Phosphatase 111 U/L (45-117); Aspartate Amino Transferase 11 U/L (0-37); Blood Urea Nitrogen 41 MG/DL (7-18); Calcium 7.4 MG/DL (8.5-10.1); Estimated Glom Filtration Rate 34 ML/MIN; Glucose 76 MG/DL (74-106); Osmolality,Calculated 283.7 MOS/KG (273-304); Total Protein 5.3 G/DL (6.4-8.3)
[2020-07-27 05:37] LABS: Band Neutrophils 2 % (0-10); Hypochromasia 1+; Lymphocytes 13 % (20-55); Microcytosis 1+; Nucleated Red Blood Cells 1 (0-5); Ovalocytes Slight; Platelet Estimate Adequate; Segmented Neutrophils 83 % (50-85); Total Cells Counted 100
[2020-07-27] MEDS: PIPERACILLIN/TAZOBACTAM 3,375 MG in SODIUM CHLORIDE 0.9% 100 ML IV SCH ×2 (06:44→18:11)
[2020-07-27] MEDS ORDERED: ENOXAPARIN 30 MG/0.3 ML SYRINGE ONE (07:54)
[2020-07-27] MEDS: ACETAMINOPHEN 325 MG TABLET PO PRN ×2 (08:01→13:03)
[2020-07-27] MEDS: DOCUSATE SODIUM 100 MG CAPSULE PO SCH ×2 (08:02→21:05)
[2020-07-27] MEDS: ENOXAPARIN 30 MG/0.3 ML SYRINGE SUBCUT SCH (08:02)
[2020-07-27] MEDS: PANTOPRAZOLE 40 MG TABLET PO SCH (08:02)
[2020-07-27] MEDS: SODIUM CHLORIDE 0.9% 1,000 ML IV SCH ×2 (08:08→12:58)
[2020-07-27] MEDS ORDERED: MECLIZINE 25 MG TABLET PO PRN (08:19)
[2020-07-27] MEDS ORDERED: BUDESONIDE/FORMOTEROL 80-4.5 INHALER 6.9 GM INH PRN (08:19)
[2020-07-27] MEDS: POTASSIUM CHLORIDE 20 MEQ TABLET PO PRN ×4 (08:58→17:36)
[2020-07-27] MEDS: CARBIDOPA/LEVODOPA 25-100 MG TABLET PO SCH ×3 (08:59→21:05)
[2020-07-27] MEDS: GABAPENTIN 100 MG CAPSULE PO SCH ×3 (08:59→21:05)
[2020-07-27] MEDS: traMADol 50 MG TABLET PO PRN (09:06)
[2020-07-27] MEDS: BUDESONIDE/FORMOTEROL 80-4.5 INHALER 6.9 GM INH SCH ×2 (10:44→21:14)
[2020-07-27] MEDS ORDERED: PHENOL 1.4% THROAT SPRAY 177 ML BOTTLE PO PRN (11:32)
[2020-07-27] MEDS: PERPHENAZINE 2 MG TABLET PO SCH ×2 (14:23→21:05)
[2020-07-27] MEDS: glipiZIDE 10 MG TABLET PO SCH (17:36)
[2020-07-27] MEDS: methylPREDNISolone SOD SUC 40 MG/1 ML VIAL IV SCH (17:36)
[2020-07-27] MEDS: SERTRALINE 100 MG TABLET PO SCH (21:04)
[2020-07-27] MEDS: DICYCLOMINE 10 MG CAPSULE PO SCH (21:05)
[2020-07-27] MEDS: FLUCONAZOLE INJ 400 MG in PREMIX 1 EACH IV SCH (21:05)
[2020-07-28] MEDS: INSULIN LISPRO 100 UNIT/ML SUBCUT SCH ×4 (00:53→18:08)
[2020-07-28] MEDS: methylPREDNISolone SOD SUC 40 MG/1 ML VIAL IV SCH ×3 (00:53→18:08)
[2020-07-28] MEDS: SODIUM CHLORIDE 0.9% 1,000 ML IV SCH ×3 (03:27→19:36)
[2020-07-28] MEDS: ACETAMINOPHEN 325 MG TABLET PO PRN ×2 (04:48→16:26)
[2020-07-28 05:24] LABS: Basophils % 0.3 % (0.0-0.8); Eosinophils % 0.3 % (0.00-10.9); Hematocrit 24.9 VOL% (35.7-47.0); Hemoglobin 7.8 GM/DL (12.0-16.0); Immature Granulocytes % 1.1 %; Immature Granulocytes Absolute 0.04 #; Lymphocytes # 0.2 10*3/uL (1.4-4.0); Lymphocytes % 5.3 % (21.3-54.2); Mean Corpuscular HGB Conc 31.3 GM/DL (32-36); Mean Corpuscular Volume 92.6 FL (87-102); Mean Platelet Volume 11.3 FL (9.6-12.0); Monocytes % 2.1 % (1.7-12.7); Neutrophils % 90.9 % (38.7-73.9); Platelet Count 141 T/CUMM (130-400); Red Blood Count 2.69 MC/CUMM (3.8-5.5); Red Cell Distribution Width 16.9 % (9.3-17.3); White Blood Count 3.8 T/CUMM (4-12)
[2020-07-28 05:45] LABS: Hypochromasia 1+; Lymphocytes 7 % (20-55); Microcytosis 1+; Ovalocytes Slight; Platelet Estimate Adequate; Segmented Neutrophils 87 % (50-85); Total Cells Counted 100
[2020-07-28 05:51] LABS: Calcium 7.4 MG/DL (8.5-10.1); Osmolality,Calculated 293.8 MOS/KG (273-304)
[2020-07-28] MEDS: PIPERACILLIN/TAZOBACTAM 3,375 MG in SODIUM CHLORIDE 0.9% 100 ML IV SCH ×2 (06:06→20:51)
[2020-07-28] MEDS: CARBIDOPA/LEVODOPA 25-100 MG TABLET PO SCH ×3 (09:00→20:00)
[2020-07-28] MEDS: glipiZIDE 10 MG TABLET PO SCH ×2 (09:00→16:24)
[2020-07-28] MEDS: DOCUSATE SODIUM 100 MG CAPSULE PO SCH ×2 (09:00→20:00)
[2020-07-28] MEDS: PERPHENAZINE 2 MG TABLET PO SCH ×3 (09:00→20:00)
[2020-07-28] MEDS: GABAPENTIN 100 MG CAPSULE PO SCH ×3 (09:00→20:00)
[2020-07-28] MEDS: PANTOPRAZOLE 40 MG TABLET PO SCH (09:00)
[2020-07-28] MEDS: BUDESONIDE/FORMOTEROL 80-4.5 INHALER 6.9 GM INH SCH ×2 (09:01→20:00)
[2020-07-28] MEDS: ENOXAPARIN 30 MG/0.3 ML SYRINGE SUBCUT SCH (09:01)
[2020-07-28] MEDS: traMADol 50 MG TABLET PO PRN ×2 (09:07→20:00)
[2020-07-28] MEDS ORDERED: MAGNESIUM SULF RIDER 2 GM in PREMIX 1 EACH IV PRN (12:24)
[2020-07-28] MEDS ORDERED: MAGNESIUM SULF RIDER 4 GM in PREMIX 1 EACH IV PRN (12:24)
[2020-07-28] MEDS: LEVOFLOXACIN INJ 250 MG in PREMIX 1 EACH IV SCH (18:08)
[2020-07-28] MEDS: MENTHOL/ZINC OXIDE OINT 71 GM JAR TOP SCH ×2 (19:22→20:00)
[2020-07-28] MEDS: DICYCLOMINE 10 MG CAPSULE PO SCH (20:00)
[2020-07-28] MEDS: SERTRALINE 100 MG TABLET PO SCH (20:00)
[2020-07-29] MEDS: FLUCONAZOLE INJ 400 MG in PREMIX 1 EACH IV SCH (01:02)
[2020-07-29] MEDS: INSULIN LISPRO 100 UNIT/ML SUBCUT SCH ×4 (01:03→17:13)
[2020-07-29] MEDS: methylPREDNISolone SOD SUC 40 MG/1 ML VIAL IV SCH ×3 (01:03→17:44)
[2020-07-29] MEDS: PIPERACILLIN/TAZOBACTAM 3,375 MG in SODIUM CHLORIDE 0.9% 100 ML IV SCH ×2 (06:00→19:09)
[2020-07-29] MEDS: SODIUM CHLORIDE 0.9% 1,000 ML IV SCH ×4 (06:40→20:59)
[2020-07-29] MEDS: ACETAMINOPHEN 325 MG TABLET PO PRN ×2 (09:14→15:33)
[2020-07-29] MEDS: GABAPENTIN 100 MG CAPSULE PO SCH ×3 (09:15→21:02)
[2020-07-29] MEDS: PANTOPRAZOLE 40 MG TABLET PO SCH (09:15)
[2020-07-29] MEDS: DOCUSATE SODIUM 100 MG CAPSULE PO SCH ×2 (09:15→21:02)
[2020-07-29] MEDS: MAGNESIUM OXIDE 400 MG TABLET PO SCH ×2 (09:15→21:02)
[2020-07-29] MEDS: CARBIDOPA/LEVODOPA 25-100 MG TABLET PO SCH ×3 (09:16→21:02)
[2020-07-29] MEDS: glipiZIDE 10 MG TABLET PO SCH ×2 (09:16→17:44)
[2020-07-29] MEDS: PERPHENAZINE 2 MG TABLET PO SCH ×3 (09:16→21:02)
[2020-07-29] MEDS: ENOXAPARIN 30 MG/0.3 ML SYRINGE SUBCUT SCH (09:17)
[2020-07-29] MEDS: BUDESONIDE/FORMOTEROL 80-4.5 INHALER 6.9 GM INH SCH ×2 (09:20→21:03)
[2020-07-29] MEDS: MENTHOL/ZINC OXIDE OINT 71 GM JAR TOP SCH ×2 (12:55→21:03)
[2020-07-29 14:15] LABS: Bilirubin,Urine Negative (Negative); Blood, Urine Negative (Negative); Glucose,Urine (UA) 50 mg/dL (Negative); Ketones,Urine Negative (Negative); Nitrite,Urine Negative (Negative); Protein,Urine 30 MG/DL; Squamous Epithelial Cell,Urine Occasional /HPF (0-10); Urine Appearance CLEAR (Clear); Urine Color Straw (Yellow); Urine Specific Gravity 1.015 (1.001-1.035); Urine Urobilinogen < 2.0 EU/DL (0.2-1.0); WBC,Urine 1 /HPF (0-6)
[2020-07-29] MEDS: AMITRIPTYLINE 25 MG TABLET PO SCH ×2 (17:07→21:02)
[2020-07-29] MEDS: SERTRALINE 100 MG TABLET PO SCH (21:02)
[2020-07-29] MEDS: DICYCLOMINE 10 MG CAPSULE PO SCH (21:02)
[2020-07-30] MEDS: methylPREDNISolone SOD SUC 40 MG/1 ML VIAL IV SCH ×3 (01:30→17:08)
[2020-07-30] MEDS: FLUCONAZOLE INJ 400 MG in PREMIX 1 EACH IV SCH (01:30)
[2020-07-30] MEDS: INSULIN LISPRO 100 UNIT/ML SUBCUT SCH ×4 (01:31→17:53)
[2020-07-30] MEDS: traMADol 50 MG TABLET PO PRN ×2 (02:45→17:52)
[2020-07-30] MEDS: PIPERACILLIN/TAZOBACTAM 3,375 MG in SODIUM CHLORIDE 0.9% 100 ML IV SCH ×2 (06:15→19:57)
[2020-07-30] MEDS: ACETAMINOPHEN 325 MG TABLET PO PRN (07:57)
[2020-07-30] MEDS ORDERED: INSULIN GLARGINE 100 UNIT/ML SUBCUT SCH (09:00)
[2020-07-30] MEDS: PERPHENAZINE 2 MG TABLET PO SCH ×3 (09:06→21:42)
[2020-07-30] MEDS: AMITRIPTYLINE 25 MG TABLET PO SCH ×3 (09:06→21:43)
[2020-07-30] MEDS: DOCUSATE SODIUM 100 MG CAPSULE PO SCH ×2 (09:06→21:43)
[2020-07-30] MEDS: MAGNESIUM OXIDE 400 MG TABLET PO SCH ×2 (09:07→21:42)
[2020-07-30] MEDS: ENOXAPARIN 30 MG/0.3 ML SYRINGE SUBCUT SCH (09:07)
[2020-07-30] MEDS: CARBIDOPA/LEVODOPA 25-100 MG TABLET PO SCH ×3 (09:07→21:42)
[2020-07-30] MEDS: GABAPENTIN 100 MG CAPSULE PO SCH ×3 (09:07→21:42)
[2020-07-30] MEDS: glipiZIDE 10 MG TABLET PO SCH ×2 (09:07→17:08)
[2020-07-30] MEDS: PANTOPRAZOLE 40 MG TABLET PO SCH (09:07)
[2020-07-30] MEDS: BUDESONIDE/FORMOTEROL 80-4.5 INHALER 6.9 GM INH SCH ×2 (09:08→21:43)
[2020-07-30] MEDS: MENTHOL/ZINC OXIDE OINT 71 GM JAR TOP SCH ×2 (09:40→21:43)
[2020-07-30] MEDS: SODIUM CHLORIDE 0.9% 1,000 ML IV SCH ×2 (11:00→18:35)
[2020-07-30] MEDS: LEVOFLOXACIN INJ 250 MG in PREMIX 1 EACH IV SCH (18:39)
[2020-07-30] MEDS: DICYCLOMINE 10 MG CAPSULE PO SCH (21:42)
[2020-07-30] MEDS: SERTRALINE 100 MG TABLET PO SCH (21:42)
[2020-07-31] MEDS: FLUCONAZOLE INJ 400 MG in PREMIX 1 EACH IV SCH (00:44)
[2020-07-31] MEDS: INSULIN LISPRO 100 UNIT/ML SUBCUT SCH ×2 (00:44→05:40)
[2020-07-31] MEDS: methylPREDNISolone SOD SUC 40 MG/1 ML VIAL IV SCH (00:48)
[2020-07-31] MEDS: ACETAMINOPHEN 325 MG TABLET PO PRN (00:49)
[2020-07-31] MEDS: SODIUM CHLORIDE 0.9% 1,000 ML IV SCH (04:27)
[2020-07-31] MEDS: traMADol 50 MG TABLET PO PRN (05:39)
[2020-07-31] MEDS: PIPERACILLIN/TAZOBACTAM 3,375 MG in SODIUM CHLORIDE 0.9% 100 ML IV SCH (06:00)
[2020-07-31 07:55] VITALS: BP 143/106
== END 2020-07-31 09:11 | disposition home health service (06) | DRG 190 ==
LOC: N.ED 17:37 → N.EDINP 19:52 → N.3E 20:48
PROVIDERS: ADMIT Family Medicine; ATTEND Family Medicine

== ENCOUNTER 2020-09-14 16:41 | Inpatient (IN) ==
[2020-09-14] MEDS ORDERED: AZITHROMYCIN INJ 500 MG in SODIUM CHLORIDE 0.9% 250 ML IV STA (17:36)
[2020-09-14] MEDS ORDERED: cefTRIAXone 1,000 MG in SODIUM CHLORIDE 0.9% 100 ML IV STA (17:36)
[2020-09-14 18:23] LABS: Basophils % 0.1 % (0.0-0.8); Eosinophils % 0.4 % (0.00-10.9); Hematocrit 28.6 VOL% (35.7-47.0); Hemoglobin 9.2 GM/DL (12.0-16.0); Immature Granulocytes % 1.2 %; Immature Granulocytes Absolute 0.08 #; Lymphocytes # 0.7 10*3/uL (1.4-4.0); Lymphocytes % 9.9 % (21.3-54.2); Mean Corpuscular HGB Conc 32.2 GM/DL (32-36); Mean Corpuscular Volume 90.8 FL (87-102); Mean Platelet Volume 10.5 FL (9.6-12.0); Monocytes % 6.2 % (1.7-12.7); Neutrophils % 82.2 % (38.7-73.9); Platelet Count 137 T/CUMM (130-400); Red Blood Count 3.15 MC/CUMM (3.8-5.5); Red Cell Distribution Width 18.3 % (9.3-17.3); White Blood Count 6.8 T/CUMM (4-12)
[2020-09-14 18:32] LABS: PT Patient Result 10.7 SECS (9.8-11.9); Partial Thromboplastin Time 28.8 SECS (23.9-33.8)
[2020-09-14 19:01] LABS: Alanine Aminotransferase < 9 U/L (13-56); Albumin 2.7 G/DL (3.4-5.0); Alkaline Phosphatase 77 U/L (45-117); Aspartate Amino Transferase 7 U/L (0-37); Bilirubin,Total < 0.39 MG/DL (0.2-1.0); Blood Urea Nitrogen 24 MG/DL (7-18); Calcium 8.3 MG/DL (8.5-10.1); Estimated Glom Filtration Rate 43 ML/MIN; Glucose 242 MG/DL (74-106); Osmolality,Calculated 277.4 MOS/KG (273-304); Total Protein 6.2 G/DL (6.4-8.3)
[2020-09-14 19:12] LABS: Anisocytosis 2+; Microcytosis 1+; Polychromasia 1+
[2020-09-14 19:13] LABS: Platelet Estimate Adequate; Tear Drop Cells 1+
[2020-09-14] MEDS ORDERED: DEXTROSE 50% 25 GM/50 ML VIAL IV PRN (19:31)
[2020-09-14] MEDS ORDERED: GLUCAGON 1 MG VIAL IM PRN (19:31)
[2020-09-14] MEDS ORDERED: BUDESONIDE/FORMOTEROL 80-4.5 INHALER 6.9 GM INH PRN (19:33)
[2020-09-14] MEDS: DOCUSATE SODIUM 100 MG CAPSULE PO SCH (22:38)
[2020-09-14] MEDS: SERTRALINE 100 MG TABLET PO SCH (22:39)
[2020-09-14] MEDS: CARBIDOPA/LEVODOPA 25-100 MG TABLET PO SCH (22:39)
[2020-09-14] MEDS ORDERED: ALBUTEROL 2.5 MG/3 ML NEB RESP TX PRN (23:00)
[2020-09-15] MEDS: ALBUTEROL/IPRATROPIUM 3 ML NEB RESP TX SCH ×4 (03:13→19:58)
[2020-09-15] MEDS: ACETAMINOPHEN 325 MG TABLET PO PRN ×3 (05:00→21:32)
[2020-09-15 06:26] LABS: Basophils % 0.1 % (0.0-0.8); Eosinophils # 0.1 10*3/uL (0.0-0.87); Eosinophils % 1.1 % (0.00-10.9); Hematocrit 22.9 VOL% (35.7-47.0); Immature Granulocytes % 1.6 %; Immature Granulocytes Absolute 0.12 #; Lymphocytes # 0.9 10*3/uL (1.4-4.0); Lymphocytes % 11.9 % (21.3-54.2); Mean Corpuscular HGB Conc 31.4 GM/DL (32-36); Mean Corpuscular Volume 91.6 FL (87-102); Mean Platelet Volume 10.5 FL (9.6-12.0); Monocytes % 5.1 % (1.7-12.7); Neutrophils % 80.2 % (38.7-73.9); Platelet Count 149 T/CUMM (130-400); White Blood Count 7.5 T/CUMM (4-12)
[2020-09-15 06:28] LABS: Hemoglobin 7.2 GM/DL (12.0-16.0)
[2020-09-15 06:47] LABS: Alanine Aminotransferase < 6 U/L (13-56); Albumin 2.3 G/DL (3.4-5.0); Alkaline Phosphatase 77 U/L (45-117); Aspartate Amino Transferase 9 U/L (0-37); Blood Urea Nitrogen 20 MG/DL (7-18); Calcium 8.3 MG/DL (8.5-10.1); Estimated Glom Filtration Rate 57 ML/MIN; Glucose 188 MG/DL (74-106); Osmolality,Calculated 275.2 MOS/KG (273-304); Total Protein 5.8 G/DL (6.4-8.3)
[2020-09-15] MEDS ORDERED: DIPHENOXYLATE/ATROPINE 2.5-0.025 MG TABLET PO PRN (07:34)
[2020-09-15 08:50] LABS: Hematocrit 22.7 VOL% (35.7-47.0); Hemoglobin 7.1 GM/DL (12.0-16.0)
[2020-09-15] MEDS ORDERED: PANTOPRAZOLE 40 MG TABLET PO SCH (09:00)
[2020-09-15] MEDS ORDERED: NON-FORMULARY MEDICATION (Alendronate [Fosamax] 70 mg Tablet) PO SCH (09:00)
[2020-09-15] MEDS: GABAPENTIN 100 MG CAPSULE PO SCH ×2 (09:21→17:08)
[2020-09-15] MEDS: traMADol 50 MG TABLET PO PRN (09:21)
[2020-09-15] MEDS: glipiZIDE 10 MG TABLET PO SCH ×2 (09:21→17:08)
[2020-09-15] MEDS: CARBIDOPA/LEVODOPA 25-100 MG TABLET PO SCH ×3 (09:21→21:32)
[2020-09-15] MEDS: PANTOPRAZOLE 40 MG TABLET PO SCH ×2 (09:22→21:32)
[2020-09-15] MEDS: INSULIN GLARGINE 100 UNIT/ML SUBCUT SCH (09:22)
[2020-09-15] MEDS: DOCUSATE SODIUM 100 MG CAPSULE PO SCH ×2 (09:22→21:32)
[2020-09-15 10:07] LABS: Folate 8.1 NG/ML (5.4-24.0)
[2020-09-15] MEDS: cefTRIAXone 1,000 MG in SYRINGE 1 EACH IV SCH (11:31)
[2020-09-15] MEDS: MELOXICAM 7.5 MG TABLET PO SCH (11:32)
[2020-09-15] MEDS: ENALAPRIL 2.5 MG TABLET PO SCH (11:32)
[2020-09-15] MEDS: AZITHROMYCIN INJ 500 MG in SODIUM CHLORIDE 0.9% 250 ML IV SCH (11:32)
[2020-09-15] MEDS: methylPREDNISolone SOD SUC 40 MG/1 ML VIAL IV SCH (17:07)
[2020-09-15] MEDS: ENOXAPARIN 40 MG/0.4 ML SYRINGE SUBCUT SCH (17:43)
[2020-09-15] MEDS: DORNASE ALFA 2.5 MG/2.5 ML VIAL RESP TX SCH (19:58)
[2020-09-15] MEDS ORDERED: GINKGO BILOBA 120 MG PO SCH (21:00)
[2020-09-15] MEDS: SERTRALINE 100 MG TABLET PO SCH (21:32)
[2020-09-16] MEDS: methylPREDNISolone SOD SUC 40 MG/1 ML VIAL IV SCH ×4 (00:13→23:34)
[2020-09-16] MEDS: ALBUTEROL/IPRATROPIUM 3 ML NEB RESP TX SCH ×4 (02:24→19:20)
[2020-09-16] MEDS: traMADol 50 MG TABLET PO PRN ×2 (05:19→15:25)
[2020-09-16] MEDS: DORNASE ALFA 2.5 MG/2.5 ML VIAL RESP TX SCH ×2 (07:20→19:25)
[2020-09-16] MEDS: glipiZIDE 10 MG TABLET PO SCH ×2 (08:53→15:25)
[2020-09-16] MEDS: CARBIDOPA/LEVODOPA 25-100 MG TABLET PO SCH ×3 (08:53→20:24)
[2020-09-16] MEDS: ACETAMINOPHEN 325 MG TABLET PO PRN ×2 (08:54→20:24)
[2020-09-16] MEDS: PANTOPRAZOLE 40 MG TABLET PO SCH ×2 (08:54→20:24)
[2020-09-16] MEDS: GABAPENTIN 100 MG CAPSULE PO SCH ×2 (08:54→15:25)
[2020-09-16] MEDS: MELOXICAM 7.5 MG TABLET PO SCH (08:54)
[2020-09-16] MEDS: DOCUSATE SODIUM 100 MG CAPSULE PO SCH ×2 (08:54→20:24)
[2020-09-16] MEDS: INSULIN GLARGINE 100 UNIT/ML SUBCUT SCH (08:55)
[2020-09-16] MEDS: ENALAPRIL 2.5 MG TABLET PO SCH (08:56)
[2020-09-16] MEDS: cefTRIAXone 1,000 MG in SYRINGE 1 EACH IV SCH (09:00)
[2020-09-16] MEDS: AZITHROMYCIN INJ 500 MG in SODIUM CHLORIDE 0.9% 250 ML IV SCH (09:00)
[2020-09-16 09:08] LABS: Hematocrit 26.4 VOL% (35.7-47.0); Hemoglobin 8.3 GM/DL (12.0-16.0); Immature Granulocytes % 3.3 %; Lymphocytes # 0.3 10*3/uL (1.4-4.0); Lymphocytes % 4.2 % (21.3-54.2); Mean Corpuscular HGB Conc 31.4 GM/DL (32-36); Mean Corpuscular Volume 92.3 FL (87-102); Mean Platelet Volume 10.5 FL (9.6-12.0); Monocytes % 1.5 % (1.7-12.7); NRBC # 0.02 10*3/uL; Platelet Count 174 T/CUMM (130-400); Red Blood Count 2.86 MC/CUMM (3.8-5.5); Red Cell Distribution Width 17.5 % (9.3-17.3); White Blood Count 6.1 T/CUMM (4-12)
[2020-09-16 10:34] LABS: Lymphocytes 3 % (20-55); Segmented Neutrophils 97 % (50-85); Total Cells Counted 100
[2020-09-16 10:35] LABS: Ovalocytes Few; Tear Drop Cells Few
[2020-09-16 10:36] LABS: Hypochromasia 1+; Microcytosis 1+; Platelet Estimate Adequate; Polychromasia Slight
[2020-09-16] MEDS: ENOXAPARIN 40 MG/0.4 ML SYRINGE SUBCUT SCH (15:26)
[2020-09-16] MEDS: INSULIN LISPRO 100 UNIT/ML SUBCUT SCH (20:23)
[2020-09-16] MEDS: SERTRALINE 100 MG TABLET PO SCH (20:24)
[2020-09-17] MEDS: ALBUTEROL/IPRATROPIUM 3 ML NEB RESP TX SCH ×2 (01:25→07:40)
[2020-09-17] MEDS: diphenhydrAMINE CAP 25 MG CAPSULE PO PRN ×2 (04:21→09:41)
[2020-09-17] MEDS: DORNASE ALFA 2.5 MG/2.5 ML VIAL RESP TX SCH (07:45)
[2020-09-17] MEDS: ACETAMINOPHEN 325 MG TABLET PO PRN ×2 (09:40→15:25)
[2020-09-17] MEDS: GABAPENTIN 100 MG CAPSULE PO SCH ×2 (09:41→15:25)
[2020-09-17] MEDS: AZITHROMYCIN INJ 500 MG in SODIUM CHLORIDE 0.9% 250 ML IV SCH (09:41)
[2020-09-17] MEDS: PANTOPRAZOLE 40 MG TABLET PO SCH ×2 (09:42→21:41)
[2020-09-17] MEDS: MELOXICAM 7.5 MG TABLET PO SCH (09:42)
[2020-09-17] MEDS: glipiZIDE 10 MG TABLET PO SCH ×2 (09:42→15:24)
[2020-09-17] MEDS: DOCUSATE SODIUM 100 MG CAPSULE PO SCH ×2 (09:42→21:42)
[2020-09-17] MEDS: INSULIN GLARGINE 100 UNIT/ML SUBCUT SCH (09:42)
[2020-09-17] MEDS: CARBIDOPA/LEVODOPA 25-100 MG TABLET PO SCH ×3 (09:42→21:41)
[2020-09-17] MEDS: INSULIN LISPRO 100 UNIT/ML SUBCUT SCH ×4 (09:43→21:42)
[2020-09-17] MEDS: cefTRIAXone 1,000 MG in SYRINGE 1 EACH IV SCH (09:43)
[2020-09-17] MEDS: methylPREDNISolone SOD SUC 40 MG/1 ML VIAL IV SCH ×2 (09:44→15:24)
[2020-09-17] MEDS: ENALAPRIL 2.5 MG TABLET PO SCH (09:44)
[2020-09-17] MEDS: ALBUTEROL 2.5 MG/3 ML NEB RESP TX SCH ×2 (13:35→20:05)
[2020-09-17] MEDS: ENOXAPARIN 40 MG/0.4 ML SYRINGE SUBCUT SCH (15:24)
[2020-09-17] MEDS: traMADol 50 MG TABLET PO PRN (21:41)
[2020-09-17] MEDS: SERTRALINE 100 MG TABLET PO SCH (21:41)
[2020-09-18] MEDS: ALBUTEROL 2.5 MG/3 ML NEB RESP TX SCH ×4 (00:20→20:10)
[2020-09-18] MEDS: methylPREDNISolone SOD SUC 40 MG/1 ML VIAL IV SCH ×3 (01:02→15:31)
[2020-09-18] MEDS: diphenhydrAMINE CAP 25 MG CAPSULE PO PRN (02:54)
[2020-09-18] MEDS: INSULIN GLARGINE 100 UNIT/ML SUBCUT SCH (10:25)
[2020-09-18] MEDS: INSULIN LISPRO 100 UNIT/ML SUBCUT SCH ×4 (10:25→21:50)
[2020-09-18] MEDS: cefTRIAXone 1,000 MG in SYRINGE 1 EACH IV SCH (10:29)
[2020-09-18] MEDS: PANTOPRAZOLE 40 MG TABLET PO SCH ×2 (10:30→21:41)
[2020-09-18] MEDS: glipiZIDE 10 MG TABLET PO SCH ×2 (10:30→15:31)
[2020-09-18] MEDS: ENALAPRIL 2.5 MG TABLET PO SCH (10:30)
[2020-09-18] MEDS: GABAPENTIN 100 MG CAPSULE PO SCH ×2 (10:31→15:31)
[2020-09-18] MEDS: MELOXICAM 7.5 MG TABLET PO SCH (10:31)
[2020-09-18] MEDS: DOCUSATE SODIUM 100 MG CAPSULE PO SCH ×2 (10:31→21:40)
[2020-09-18] MEDS: CARBIDOPA/LEVODOPA 25-100 MG TABLET PO SCH ×3 (10:31→21:41)
[2020-09-18] MEDS: traMADol 50 MG TABLET PO PRN ×2 (10:36→21:41)
[2020-09-18] MEDS: AZITHROMYCIN INJ 500 MG in SODIUM CHLORIDE 0.9% 250 ML IV SCH (10:38)
[2020-09-18] MEDS: ENOXAPARIN 40 MG/0.4 ML SYRINGE SUBCUT SCH (15:31)
[2020-09-18] MEDS: ACETAMINOPHEN 325 MG TABLET PO PRN (15:37)
[2020-09-18] MEDS: ONDANSETRON 4 MG/2 ML VIAL IV PRN (16:51)
[2020-09-18] MEDS: BENZONATATE 100 MG CAPSULE PO PRN (21:40)
[2020-09-18] MEDS: SERTRALINE 100 MG TABLET PO SCH (21:41)
[2020-09-19] MEDS: methylPREDNISolone SOD SUC 40 MG/1 ML VIAL IV SCH ×3 (00:05→16:53)
[2020-09-19] MEDS: ALBUTEROL 2.5 MG/3 ML NEB RESP TX SCH ×4 (02:40→20:58)
[2020-09-19 06:04] LABS: Basophils % 0.5 % (0.0-0.8); Eosinophils % 0.2 % (0.00-10.9); Hematocrit 28.6 VOL% (35.7-47.0); Lymphocytes # 1.1 10*3/uL (1.4-4.0); Lymphocytes % 17.2 % (21.3-54.2); Mean Corpuscular HGB Conc 31.5 GM/DL (32-36); Mean Corpuscular Volume 92.3 FL (87-102); Monocytes % 7.7 % (1.7-12.7); NRBC # 0.02 10*3/uL; Neutrophils % 62.4 % (38.7-73.9); Platelet Count 230 T/CUMM (130-400); Red Cell Distribution Width 16.9 % (9.3-17.3); White Blood Count 6.6 T/CUMM (4-12)
[2020-09-19 06:24] LABS: Calcium 9.4 MG/DL (8.5-10.1)
[2020-09-19 06:59] LABS: Band Neutrophils 1 % (0-10); Eosinophils 1 % (0-10); Lymphocytes 21 % (20-55); Metamyelocytes 2 %; Myelocytes 1 %; Segmented Neutrophils 70 % (50-85); Total Cells Counted 100
[2020-09-19 07:00] LABS: Hypochromasia 1+; Microcytosis 1+; Ovalocytes Few; Platelet Estimate Normal; Tear Drop Cells Slight
[2020-09-19] MEDS: INSULIN LISPRO 100 UNIT/ML SUBCUT SCH ×4 (08:08→21:27)
[2020-09-19] MEDS: glipiZIDE 10 MG TABLET PO SCH ×2 (10:06→14:16)
[2020-09-19] MEDS: DOCUSATE SODIUM 100 MG CAPSULE PO SCH ×2 (10:07→21:26)
[2020-09-19] MEDS: PANTOPRAZOLE 40 MG TABLET PO SCH ×2 (10:07→21:26)
[2020-09-19] MEDS: MELOXICAM 7.5 MG TABLET PO SCH (10:07)
[2020-09-19] MEDS: GABAPENTIN 100 MG CAPSULE PO SCH ×2 (10:07→14:16)
[2020-09-19] MEDS: ENALAPRIL 2.5 MG TABLET PO SCH (10:07)
[2020-09-19] MEDS: CARBIDOPA/LEVODOPA 25-100 MG TABLET PO SCH ×3 (10:07→21:26)
[2020-09-19] MEDS: INSULIN GLARGINE 100 UNIT/ML SUBCUT SCH (10:08)
[2020-09-19] MEDS: cefTRIAXone 1,000 MG in SYRINGE 1 EACH IV SCH (10:12)
[2020-09-19] MEDS: AZITHROMYCIN INJ 500 MG in SODIUM CHLORIDE 0.9% 250 ML IV SCH (10:21)
[2020-09-19] MEDS: traMADol 50 MG TABLET PO PRN (10:22)
[2020-09-19] MEDS: ENOXAPARIN 40 MG/0.4 ML SYRINGE SUBCUT SCH (14:15)
[2020-09-19] MEDS: ACETAMINOPHEN 325 MG TABLET PO PRN (14:19)
[2020-09-19] MEDS: ONDANSETRON 4 MG/2 ML VIAL IV PRN (17:52)
[2020-09-19] MEDS: SERTRALINE 100 MG TABLET PO SCH (21:27)
[2020-09-19] MEDS: BENZONATATE 100 MG CAPSULE PO PRN (21:27)
[2020-09-20] MEDS: methylPREDNISolone SOD SUC 40 MG/1 ML VIAL IV SCH ×4 (01:15→23:08)
[2020-09-20] MEDS: ALBUTEROL 2.5 MG/3 ML NEB RESP TX SCH ×4 (02:00→20:31)
[2020-09-20] MEDS: cefTRIAXone 1,000 MG in SYRINGE 1 EACH IV SCH (09:13)
[2020-09-20] MEDS: glipiZIDE 10 MG TABLET PO SCH ×2 (09:16→14:04)
[2020-09-20] MEDS: traMADol 50 MG TABLET PO PRN ×2 (09:16→21:34)
[2020-09-20] MEDS: GABAPENTIN 100 MG CAPSULE PO SCH ×2 (09:16→14:06)
[2020-09-20] MEDS: PANTOPRAZOLE 40 MG TABLET PO SCH ×2 (09:16→21:34)
[2020-09-20] MEDS: DOCUSATE SODIUM 100 MG CAPSULE PO SCH ×2 (09:16→21:34)
[2020-09-20] MEDS: CARBIDOPA/LEVODOPA 25-100 MG TABLET PO SCH ×3 (09:16→21:34)
[2020-09-20] MEDS: MELOXICAM 7.5 MG TABLET PO SCH (09:17)
[2020-09-20] MEDS: INSULIN LISPRO 100 UNIT/ML SUBCUT SCH ×4 (09:17→21:33)
[2020-09-20] MEDS: ENALAPRIL 2.5 MG TABLET PO SCH (09:17)
[2020-09-20] MEDS: INSULIN GLARGINE 100 UNIT/ML SUBCUT SCH (09:18)
[2020-09-20] MEDS: AZITHROMYCIN INJ 500 MG in SODIUM CHLORIDE 0.9% 250 ML IV SCH (10:05)
[2020-09-20] MEDS: ONDANSETRON 4 MG/2 ML VIAL IV PRN ×2 (11:35→17:18)
[2020-09-20] MEDS: ENOXAPARIN 40 MG/0.4 ML SYRINGE SUBCUT SCH (14:10)
[2020-09-20] MEDS: ACETAMINOPHEN 325 MG TABLET PO PRN (17:15)
[2020-09-20] MEDS: SERTRALINE 100 MG TABLET PO SCH (21:34)
[2020-09-21] MEDS: ALBUTEROL 2.5 MG/3 ML NEB RESP TX SCH ×4 (07:02→19:46)
[2020-09-21] MEDS: traMADol 50 MG TABLET PO PRN ×2 (07:46→21:20)
[2020-09-21] MEDS: glipiZIDE 10 MG TABLET PO SCH ×2 (08:51→15:03)
[2020-09-21] MEDS: INSULIN GLARGINE 100 UNIT/ML SUBCUT SCH (08:51)
[2020-09-21] MEDS: MELOXICAM 7.5 MG TABLET PO SCH (08:51)
[2020-09-21] MEDS: methylPREDNISolone SOD SUC 40 MG/1 ML VIAL IV SCH ×3 (08:51→23:35)
[2020-09-21] MEDS: DOCUSATE SODIUM 100 MG CAPSULE PO SCH ×2 (08:51→21:20)
[2020-09-21] MEDS: CARBIDOPA/LEVODOPA 25-100 MG TABLET PO SCH ×3 (08:52→21:20)
[2020-09-21] MEDS: GABAPENTIN 100 MG CAPSULE PO SCH ×2 (08:52→15:03)
[2020-09-21] MEDS: ENALAPRIL 2.5 MG TABLET PO SCH (08:52)
[2020-09-21] MEDS: PANTOPRAZOLE 40 MG TABLET PO SCH ×2 (08:52→21:20)
[2020-09-21] MEDS: INSULIN LISPRO 100 UNIT/ML SUBCUT SCH ×4 (09:09→21:21)
[2020-09-21] MEDS: cefTRIAXone 1,000 MG in SYRINGE 1 EACH IV SCH (09:10)
[2020-09-21] MEDS: AZITHROMYCIN INJ 500 MG in SODIUM CHLORIDE 0.9% 250 ML IV SCH (10:56)
[2020-09-21] MEDS: ACETAMINOPHEN 325 MG TABLET PO PRN ×2 (13:37→18:19)
[2020-09-21] MEDS: ENOXAPARIN 40 MG/0.4 ML SYRINGE SUBCUT SCH (15:03)
[2020-09-21] MEDS: SERTRALINE 100 MG TABLET PO SCH (21:20)
[2020-09-22] MEDS: ALBUTEROL 2.5 MG/3 ML NEB RESP TX SCH ×3 (00:36→13:35)
[2020-09-22] MEDS: ACETAMINOPHEN 325 MG TABLET PO PRN (01:07)
[2020-09-22] MEDS ORDERED: MORPHINE 4 MG/1 ML VIAL IV PRN (02:57)
[2020-09-22] MEDS ORDERED: PROMETHAZINE 25 MG/1 ML VIAL IM ONE (07:00)
[2020-09-22] MEDS ORDERED: MEPERIDINE 50 MG/1 ML VIAL IM ONE (07:00)
[2020-09-22] MEDS: INSULIN LISPRO 100 UNIT/ML SUBCUT SCH ×2 (07:25→12:34)
[2020-09-22] MEDS ORDERED: LIDOCAINE 2% 20 ML VIAL RESP TX ONE (07:30)
[2020-09-22] MEDS ORDERED: LIDOCAINE 2% VISCOUS 100 ML BOTTLE SWISH/SPIT ONE (07:30)
[2020-09-22] MEDS ORDERED: MIDAZOLAM 2 MG/2 ML VIAL IV ONE (07:30)
[2020-09-22] MEDS ORDERED: LIDOCAINE 1% 20 ML VIAL MISC INJ ONE (07:30)
[2020-09-22] MEDS: DOCUSATE SODIUM 100 MG CAPSULE PO SCH (08:15)
[2020-09-22] MEDS: INSULIN GLARGINE 100 UNIT/ML SUBCUT SCH (08:15)
[2020-09-22] MEDS: methylPREDNISolone SOD SUC 40 MG/1 ML VIAL IV SCH (08:15)
[2020-09-22] MEDS: glipiZIDE 10 MG TABLET PO SCH (08:15)
[2020-09-22] MEDS: CARBIDOPA/LEVODOPA 25-100 MG TABLET PO SCH (08:16)
[2020-09-22] MEDS: PANTOPRAZOLE 40 MG TABLET PO SCH (08:16)
[2020-09-22] MEDS: MELOXICAM 7.5 MG TABLET PO SCH (08:16)
[2020-09-22] MEDS: GABAPENTIN 100 MG CAPSULE PO SCH (08:16)
[2020-09-22] MEDS: ENALAPRIL 2.5 MG TABLET PO SCH (08:16)
[2020-09-22] MEDS: cefTRIAXone 1,000 MG in SYRINGE 1 EACH IV SCH (08:59)
[2020-09-22] MEDS: AZITHROMYCIN INJ 500 MG in SODIUM CHLORIDE 0.9% 250 ML IV SCH (09:00)
[2020-09-22 12:07] VITALS: BP 123/72
[2020-09-22] MEDS: ENOXAPARIN 40 MG/0.4 ML SYRINGE SUBCUT SCH (13:26)
== END 2020-09-22 15:21 | disposition home or self-care (01) | DRG 190 ==
LOC: N.ED 16:41 → N.EDINP 19:31 → N.3E 21:31
PROVIDERS: ADMIT Family Medicine; ATTEND Family Medicine

== ENCOUNTER 2020-12-15 11:14 | Inpatient (IN) ==
[2020-12-15 13:27] LABS: Blood, Urine Negative (Negative); Glucose,Urine (UA) Negative (Negative); Ketones,Urine 5 mg/dL (Negative); Mucus,Urine Occasional /LPF (Occasional); Nitrite,Urine Negative (Negative); Protein,Urine 30 MG/DL; RBC,Urine 2 /HPF (0-4); Squamous Epithelial Cell,Urine Occasional /HPF (0-10); Urine Appearance CLEAR (Clear); Urine Color Yellow (Yellow); Urine Specific Gravity 1.023 (1.001-1.035); Urine Urobilinogen < 2.0 EU/DL (0.2-1.0); WBC,Urine 7 /HPF (0-6)
[2020-12-15 13:28] LABS: Bilirubin,Urine Small mg/dL (Negative)
[2020-12-15 14:00] LABS: Basophils % 0.4 % (0.0-0.8); Eosinophils # 0.1 10*3/uL (0.0-0.87); Eosinophils % 1.1 % (0.00-10.9); Hematocrit 33.4 VOL% (35.7-47.0); Hemoglobin 9.8 GM/DL (12.0-16.0); Immature Granulocytes % 2.7 %; Immature Granulocytes Absolute 0.24 #; Lymphocytes # 1.1 10*3/uL (1.4-4.0); Lymphocytes % 12.1 % (21.3-54.2); Mean Corpuscular HGB Conc 29.3 GM/DL (32-36); Mean Corpuscular Volume 92.5 FL (87-102); Mean Platelet Volume 10.7 FL (9.6-12.0); Monocytes % 2.9 % (1.7-12.7); Neutrophils % 80.8 % (38.7-73.9); Platelet Count 204 T/CUMM (130-400); Red Blood Count 3.61 MC/CUMM (3.8-5.5); Red Cell Distribution Width 17.9 % (9.3-17.3); White Blood Count 8.9 T/CUMM (4-12)
[2020-12-15 14:23] LABS: Ammonia < 10 UMOL/L (11-32)
[2020-12-15 14:26] LABS: Lactic Acid 0.5 MMOL/L (0.4-2.0)
[2020-12-15 14:32] LABS: Alanine Aminotransferase < 6 U/L (13-56); Albumin 3.7 G/DL (3.4-5.0); Alkaline Phosphatase 69 U/L (45-117); Aspartate Amino Transferase 15 U/L (0-37); Bilirubin,Total < 0.39 MG/DL (0.2-1.0); Blood Urea Nitrogen 24 MG/DL (7-18); Calcium 8.5 MG/DL (8.5-10.1); Carbon Dioxide 19 MMOL/L (21-32); Estimated Glom Filtration Rate 39 ML/MIN; Osmolality,Calculated 282.1 MOS/KG (273-304); Potassium 3.1 MMOL/L (3.5-5.1); Sodium 142 MMOL/L (136-145); Total Protein 6.6 G/DL (6.4-8.2)
[2020-12-15 14:47] LABS: Glucose 32 MG/DL (74-106); Troponin I 0.082 NG/ML (0.00-0.045)
[2020-12-15] MEDS ORDERED: DEXTROSE 50% 25 GM/50 ML VIAL IV ONE (14:49)
[2020-12-15] MEDS ORDERED: ALBUTEROL/IPRATROPIUM 3 ML NEB RESP TX STA (14:55)
[2020-12-15] MEDS ORDERED: cefTRIAXone 1,000 MG in SODIUM CHLORIDE 0.9% 100 ML IV STA (14:55)
[2020-12-15] MEDS ORDERED: PIPERACILLIN/TAZOBACTAM 3,375 MG in SODIUM CHLORIDE 0.9% 100 ML IV STA (15:29)
[2020-12-15] MEDS ORDERED: DEXTROSE 50% 25 GM/50 ML VIAL IV STA (15:39)
[2020-12-15] MEDS ORDERED: ONDANSETRON 4 MG/2 ML VIAL IV PRN (15:42)
[2020-12-15] MEDS ORDERED: MECLIZINE 25 MG TABLET PO PRN (17:15)
[2020-12-15] MEDS: GLIMEPIRIDE 2 MG TABLET PO SCH (18:17)
[2020-12-15] MEDS ORDERED: DEXTROSE 50% 25 GM/50 ML VIAL IV PRN (18:17)
[2020-12-15] MEDS: methylPREDNISolone SOD SUC 40 MG/1 ML VIAL IV SCH (18:32)
[2020-12-15] MEDS: ALBUTEROL/IPRATROPIUM 3 ML NEB RESP TX SCH (19:25)
[2020-12-15 19:49] LABS: Troponin I < 0.015 NG/ML (0.00-0.045)
[2020-12-15] MEDS ORDERED: PERPHENAZINE 4 MG TABLET PO SCH (21:00)
[2020-12-15] MEDS: PERPHENAZINE 4 MG TABLET PO SCH (21:22)
[2020-12-15] MEDS: AMITRIPTYLINE 25 MG TABLET PO SCH ×2 (21:22→23:38)
[2020-12-15] MEDS: ENOXAPARIN 40 MG/0.4 ML SYRINGE SUBCUT SCH (21:22)
[2020-12-15] MEDS: SERTRALINE 100 MG TABLET PO SCH ×2 (21:22→23:38)
[2020-12-15] MEDS: DOCUSATE SODIUM 100 MG CAPSULE PO SCH ×2 (21:22→23:38)
[2020-12-15] MEDS: MAGNESIUM OXIDE 400 MG TABLET PO SCH ×2 (21:22→23:37)
[2020-12-15] MEDS: PIPERACILLIN/TAZOBACTAM 3,375 MG in SODIUM CHLORIDE 0.9% 100 ML IV SCH (23:29)
[2020-12-16] MEDS: ALBUTEROL/IPRATROPIUM 3 ML NEB RESP TX SCH ×4 (00:30→19:11)
[2020-12-16] MEDS: methylPREDNISolone SOD SUC 40 MG/1 ML VIAL IV SCH ×3 (02:45→18:05)
[2020-12-16] MEDS: PIPERACILLIN/TAZOBACTAM 3,375 MG in SODIUM CHLORIDE 0.9% 100 ML IV SCH ×3 (06:17→23:54)
[2020-12-16] MEDS ORDERED: GLUCAGON 1 MG VIAL IM PRN (07:39)
[2020-12-16] MEDS ORDERED: DEXTROSE 50% 25 GM/50 ML VIAL IV PRN ×2 (07:39→07:49)
[2020-12-16] MEDS: MAGNESIUM OXIDE 400 MG TABLET PO SCH ×2 (09:00→22:20)
[2020-12-16] MEDS: GLIMEPIRIDE 2 MG TABLET PO SCH ×2 (09:00→18:05)
[2020-12-16] MEDS: AMITRIPTYLINE 25 MG TABLET PO SCH ×3 (09:00→22:20)
[2020-12-16] MEDS: PERPHENAZINE 4 MG TABLET PO SCH ×3 (09:04→22:21)
[2020-12-16] MEDS: DOCUSATE SODIUM 100 MG CAPSULE PO SCH ×2 (09:04→22:20)
[2020-12-16] MEDS: BUDESONIDE/FORMOTEROL 80-4.5 INHALER 6.9 GM INH SCH (09:04)
[2020-12-16] MEDS: PANTOPRAZOLE 40 MG TABLET PO SCH (09:04)
[2020-12-16] MEDS: INSULIN GLARGINE 100 UNIT/ML SUBCUT SCH (09:04)
[2020-12-16] MEDS: CARBIDOPA/LEVODOPA 25-100 MG TABLET PO SCH ×3 (09:18→22:21)
[2020-12-16] MEDS: ENALAPRIL 2.5 MG TABLET PO SCH (09:19)
[2020-12-16] MEDS: ACETAMINOPHEN 325 MG TABLET PO PRN ×2 (09:26→22:22)
[2020-12-16] MEDS ORDERED: TUBERCULIN SKIN TEST 0.1 ML SYRINGE INTRADERM ONE (09:41)
[2020-12-16] MEDS: INSULIN LISPRO 100 UNIT/ML SUBCUT SCH ×3 (11:35→21:26)
[2020-12-16] MEDS: ENOXAPARIN 40 MG/0.4 ML SYRINGE SUBCUT SCH (22:20)
[2020-12-16] MEDS: SERTRALINE 100 MG TABLET PO SCH (22:22)
[2020-12-17] MEDS: ALBUTEROL/IPRATROPIUM 3 ML NEB RESP TX SCH ×4 (00:48→20:21)
[2020-12-17] MEDS: methylPREDNISolone SOD SUC 40 MG/1 ML VIAL IV SCH ×4 (02:10→17:50)
[2020-12-17] MEDS: INSULIN GLARGINE 100 UNIT/ML SUBCUT SCH (08:22)
[2020-12-17] MEDS: PIPERACILLIN/TAZOBACTAM 3,375 MG in SODIUM CHLORIDE 0.9% 100 ML IV SCH ×2 (08:22→14:55)
[2020-12-17] MEDS: GLIMEPIRIDE 2 MG TABLET PO SCH ×2 (08:23→16:37)
[2020-12-17] MEDS: MAGNESIUM OXIDE 400 MG TABLET PO SCH ×2 (08:23→20:22)
[2020-12-17] MEDS: PANTOPRAZOLE 40 MG TABLET PO SCH (08:23)
[2020-12-17] MEDS: INSULIN LISPRO 100 UNIT/ML SUBCUT SCH ×4 (08:23→20:40)
[2020-12-17] MEDS: DOCUSATE SODIUM 100 MG CAPSULE PO SCH ×2 (08:24→20:22)
[2020-12-17] MEDS: busPIRone 5 MG TABLET PO SCH ×3 (08:24→20:21)
[2020-12-17] MEDS: AMITRIPTYLINE 25 MG TABLET PO SCH ×3 (08:24→20:22)
[2020-12-17] MEDS: CARBIDOPA/LEVODOPA 25-100 MG TABLET PO SCH ×3 (08:24→20:22)
[2020-12-17] MEDS: PERPHENAZINE 4 MG TABLET PO SCH ×3 (08:24→20:22)
[2020-12-17] MEDS: ENALAPRIL 2.5 MG TABLET PO SCH (08:26)
[2020-12-17] MEDS: BUDESONIDE/FORMOTEROL 80-4.5 INHALER 6.9 GM INH SCH (08:26)
[2020-12-17] MEDS: ACETAMINOPHEN 325 MG TABLET PO PRN (14:53)
[2020-12-17] MEDS: ENOXAPARIN 40 MG/0.4 ML SYRINGE SUBCUT SCH (20:22)
[2020-12-17] MEDS: SERTRALINE 100 MG TABLET PO SCH (20:22)
[2020-12-18] MEDS: ALBUTEROL/IPRATROPIUM 3 ML NEB RESP TX SCH ×2 (00:33→07:23)
[2020-12-18] MEDS: PIPERACILLIN/TAZOBACTAM 3,375 MG in SODIUM CHLORIDE 0.9% 100 ML IV SCH ×2 (00:39→09:33)
[2020-12-18] MEDS: methylPREDNISolone SOD SUC 40 MG/1 ML VIAL IV SCH ×2 (02:00→09:12)
[2020-12-18] MEDS: INSULIN LISPRO 100 UNIT/ML SUBCUT SCH ×2 (07:44→11:47)
[2020-12-18] MEDS: BUDESONIDE/FORMOTEROL 80-4.5 INHALER 6.9 GM INH SCH (09:08)
[2020-12-18] MEDS: MAGNESIUM OXIDE 400 MG TABLET PO SCH (09:08)
[2020-12-18] MEDS: INSULIN GLARGINE 100 UNIT/ML SUBCUT SCH (09:08)
[2020-12-18] MEDS: PANTOPRAZOLE 40 MG TABLET PO SCH (09:08)
[2020-12-18] MEDS: PERPHENAZINE 4 MG TABLET PO SCH (09:08)
[2020-12-18] MEDS: AMITRIPTYLINE 25 MG TABLET PO SCH (09:08)
[2020-12-18] MEDS: DOCUSATE SODIUM 100 MG CAPSULE PO SCH (09:08)
[2020-12-18] MEDS: busPIRone 5 MG TABLET PO SCH (09:08)
[2020-12-18] MEDS: GLIMEPIRIDE 2 MG TABLET PO SCH (09:08)
[2020-12-18] MEDS: CARBIDOPA/LEVODOPA 25-100 MG TABLET PO SCH (09:08)
[2020-12-18] MEDS: ENALAPRIL 2.5 MG TABLET PO SCH (09:08)
[2020-12-18 11:18] VITALS: BP 134/69
== END 2020-12-18 12:10 | DRG 193 ==
LOC: N.EDINP 11:14 → N.ED 11:14 → N.2E 17:05
PROVIDERS: ADMIT Family Medicine; ATTEND Family Medicine

== ENCOUNTER 2022-10-17 17:21 | Inpatient (IN) ==
[2022-10-17] MEDS ORDERED: SODIUM CHLORIDE 0.9% 1,800 ML IV STA (17:47)
[2022-10-17 18:03] LABS: Arterial Base Excess iSTAT -3 MMOL/L (-2.5-2.5); Arterial Bicarbonate iSTAT 20.1 MMOL/L (20-26); Arterial O2 Saturation iSTAT 97 % (95-100); Arterial PCO2 iSTAT 29 MM HG (35-48); Arterial PO2 iSTAT 80 MM HG (80-95); Arterial Total CO2 iSTAT 21 MMO/L (23-27); Arterial pH iSTAT 7.456 (7.35-7.45)
[2022-10-17 18:07] LABS: Basophils % 0.1 % (0.0-0.8); Eosinophils % 0.2 % (0.00-10.9); Hematocrit 33.6 VOL% (35.7-47.0); Immature Granulocytes % 1.1 %; Immature Granulocytes Absolute 0.17 #; Lymphocytes # 0.8 10*3/uL (1.4-4.0); Lymphocytes % 5.2 % (21.3-54.2); Mean Corpuscular HGB Conc 32.7 GM/DL (32-36); Mean Corpuscular Volume 99.4 FL (87-102); Monocytes # 0.7 10*3/uL (0.11-0.8); Monocytes % 4.4 % (1.7-12.7); Platelet Count 181 T/CUMM (130-400); Red Blood Count 3.38 MC/CUMM (3.8-5.5); Red Cell Distribution Width 15.9 % (9.3-17.3); White Blood Count 15.6 T/CUMM (4-12)
[2022-10-17 18:15] LABS: Bacteria,Urine Occasional /HPF (Few); Glucose,Urine (UA) Negative (Negative); Hyaline Casts,Urine 1 /LPF (0-3); Mucus,Urine Occasional /LPF (Occasional); Protein,Urine 100 mg/dL (Negative); RBC,Urine 1 /HPF (0-4); Urine Appearance Clear (Clear); Urine Color Yellow (Yellow); Urine pH 5.5 (4.5-8.0)
[2022-10-17 18:16] LABS: Bilirubin,Urine Negative (Negative); Blood, Urine Trace mg/dL (Negative); Ketones,Urine Negative (Negative); Nitrite,Urine Positive (Negative); Urine Urobilinogen 0.2 eU/dL (<2.0)
[2022-10-17 18:17] LABS: PT Patient Result 11.2 SECS (10.1-12.1)
[2022-10-17 18:41] LABS: Alanine Aminotransferase < 9 U/L (13-56); Alkaline Phosphatase 83 U/L (45-117); Aspartate Amino Transferase 15 U/L (0-37); Blood Urea Nitrogen 21 MG/DL (7-18); Calcium 9.1 MG/DL (8.5-10.1); Carbon Dioxide 22 MMOL/L (21-32); Chloride 101 MMOL/L (98-107); Glucose 317 MG/DL (74-106); Osmolality,Calculated 278.5 MOS/KG (273-304); Potassium 4.3 MMOL/L (3.5-5.1); Sodium 132 MMOL/L (136-145); Total Protein 7.6 G/DL (6.4-8.2)
[2022-10-17] MEDS ORDERED: AZITHROMYCIN INJ 500 MG in SODIUM CHLORIDE 0.9% 250 ML IV STA (18:50)
[2022-10-17] MEDS ORDERED: cefTRIAXone 1,000 MG in SODIUM CHLORIDE 0.9% 100 ML IV STA (18:50)
[2022-10-17] MEDS ORDERED: ONDANSETRON 4 MG/2 ML VIAL IV PRN (19:24)
[2022-10-17] MEDS: ALBUTEROL 2.5 MG/3 ML NEB RESP TX SCH ×2 (21:14→23:52)
[2022-10-17] MEDS: DOCUSATE SODIUM 100 MG CAPSULE PO SCH (21:22)
[2022-10-17] MEDS: ENOXAPARIN 40 MG/0.4 ML SYRINGE SUBCUT SCH (21:22)
[2022-10-18] MEDS: SODIUM CHLORIDE 0.9% 1,000 ML IV SCH ×2 (02:11→18:23)
[2022-10-18] MEDS: ALBUTEROL 2.5 MG/3 ML NEB RESP TX SCH ×5 (02:58→21:18)
[2022-10-18 05:32] LABS: Alanine Aminotransferase < 9 U/L (13-56); Albumin 2.9 G/DL (3.4-5.0); Alkaline Phosphatase 64 U/L (45-117); Aspartate Amino Transferase 8 U/L (0-37); Blood Urea Nitrogen 20 MG/DL (7-18); Calcium 7.5 MG/DL (8.5-10.1); Carbon Dioxide 22 MMOL/L (21-32); Chloride 107 MMOL/L (98-107); Glucose 249 MG/DL (74-106); Potassium 3.7 MMOL/L (3.5-5.1); Sodium 136 MMOL/L (136-145); Total Protein 5.8 G/DL (6.4-8.2)
[2022-10-18 06:04] LABS: Basophils % 0.1 % (0.0-0.8); Eosinophils % 0.3 % (0.00-10.9); Hematocrit 25.7 VOL% (35.7-47.0); Hemoglobin 8.6 GM/DL (12.0-16.0); Immature Granulocytes % 1.1 %; Lymphocytes # 1.3 10*3/uL (1.4-4.0); Lymphocytes % 14.3 % (21.3-54.2); Mean Corpuscular HGB Conc 33.5 GM/DL (32-36); Mean Corpuscular Volume 100.4 FL (87-102); Mean Platelet Volume 10.8 FL (9.6-12.0); Monocytes # 0.5 10*3/uL (0.11-0.8); Monocytes % 5.6 % (1.7-12.7); Neutrophils % 78.6 % (38.7-73.9); Platelet Count 127 T/CUMM (130-400); Red Blood Count 2.56 MC/CUMM (3.8-5.5); Red Cell Distribution Width 16.1 % (9.3-17.3); White Blood Count 9.3 T/CUMM (4-12)
[2022-10-18] MEDS ORDERED: ALBUTEROL/IPRATROPIUM 3 ML NEB RESP TX PRN (07:53)
[2022-10-18] MEDS ORDERED: DIPHENOXYLATE/ATROPINE 2.5-0.025 MG TABLET PO PRN (07:53)
[2022-10-18] MEDS ORDERED: ONDANSETRON 4 MG TABLET PO PRN (07:53)
[2022-10-18] MEDS ORDERED: PROMETHAZINE 25 MG TABLET PO PRN (07:53)
[2022-10-18] MEDS ORDERED: MECLIZINE 25 MG TABLET PO PRN (07:53)
[2022-10-18] MEDS ORDERED: PANTOPRAZOLE 40 MG TABLET PO SCH (09:00)
[2022-10-18] MEDS: CARBIDOPA/LEVODOPA 25-100 MG TABLET PO SCH ×3 (09:54→21:46)
[2022-10-18] MEDS: DOCUSATE SODIUM 100 MG CAPSULE PO SCH ×2 (09:54→21:45)
[2022-10-18] MEDS: busPIRone 5 MG TABLET PO SCH ×3 (09:55→21:46)
[2022-10-18] MEDS: cefTRIAXone 1,000 MG in SODIUM CHLORIDE 0.9% 100 ML IV SCH (09:55)
[2022-10-18] MEDS: MAGNESIUM OXIDE 400 MG TABLET PO SCH ×2 (09:55→21:46)
[2022-10-18] MEDS: PANTOPRAZOLE 40 MG TABLET PO SCH ×2 (09:55→21:46)
[2022-10-18] MEDS: AMITRIPTYLINE 25 MG TABLET PO SCH ×3 (09:55→21:45)
[2022-10-18] MEDS: GLIMEPIRIDE 2 MG TABLET PO SCH ×2 (09:55→17:07)
[2022-10-18] MEDS: BUDESONIDE/FORMOTEROL 80-4.5 INHALER 6.9 GM INH SCH (10:18)
[2022-10-18] MEDS: AZITHROMYCIN INJ 250 MG in SODIUM CHLORIDE 0.9% 250 ML IV SCH (10:18)
[2022-10-18] MEDS: traMADol 50 MG TABLET PO PRN (18:22)
[2022-10-18] MEDS: DICYCLOMINE 10 MG CAPSULE PO SCH (21:46)
[2022-10-18] MEDS: SERTRALINE 100 MG TABLET PO SCH (21:46)
[2022-10-18] MEDS: ENOXAPARIN 40 MG/0.4 ML SYRINGE SUBCUT SCH (21:48)
[2022-10-19] MEDS: SODIUM CHLORIDE 0.9% 1,000 ML IV SCH ×3 (01:53→13:45)
[2022-10-19] MEDS: ALBUTEROL 2.5 MG/3 ML NEB RESP TX SCH ×6 (03:20→23:30)
[2022-10-19] MEDS: CARBIDOPA/LEVODOPA 25-100 MG TABLET PO SCH ×3 (09:56→21:13)
[2022-10-19] MEDS: AMITRIPTYLINE 25 MG TABLET PO SCH ×3 (09:56→21:12)
[2022-10-19] MEDS: PANTOPRAZOLE 40 MG TABLET PO SCH ×2 (09:56→21:13)
[2022-10-19] MEDS: DOCUSATE SODIUM 100 MG CAPSULE PO SCH ×2 (09:56→21:13)
[2022-10-19] MEDS: GLIMEPIRIDE 2 MG TABLET PO SCH ×2 (09:56→17:21)
[2022-10-19] MEDS: busPIRone 5 MG TABLET PO SCH ×3 (09:56→21:11)
[2022-10-19] MEDS: MAGNESIUM OXIDE 400 MG TABLET PO SCH ×2 (09:57→21:13)
[2022-10-19] MEDS: ACETAMINOPHEN 325 MG TABLET PO PRN ×2 (09:57→17:20)
[2022-10-19] MEDS: cefTRIAXone 1,000 MG in SODIUM CHLORIDE 0.9% 100 ML IV SCH (09:57)
[2022-10-19] MEDS: BUDESONIDE/FORMOTEROL 80-4.5 INHALER 6.9 GM INH SCH (10:03)
[2022-10-19] MEDS: AZITHROMYCIN INJ 250 MG in SODIUM CHLORIDE 0.9% 250 ML IV SCH (11:31)
[2022-10-19] MEDS: SERTRALINE 100 MG TABLET PO SCH (21:11)
[2022-10-19] MEDS: traMADol 50 MG TABLET PO PRN (21:13)
[2022-10-19] MEDS: ENOXAPARIN 40 MG/0.4 ML SYRINGE SUBCUT SCH (21:15)
[2022-10-19] MEDS: DICYCLOMINE 10 MG CAPSULE PO SCH (21:20)
[2022-10-19] MEDS: guaiFENesin 200 MG/10 ML UDCUP PO PRN (23:33)
[2022-10-20] MEDS: SODIUM CHLORIDE 0.9% 1,000 ML IV SCH (03:18)
[2022-10-20] MEDS: guaiFENesin 200 MG/10 ML UDCUP PO PRN (03:37)
[2022-10-20] MEDS: ALBUTEROL 2.5 MG/3 ML NEB RESP TX SCH ×2 (03:53→07:59)
[2022-10-20 07:38] LABS: Basophils % 0.4 % (0.0-0.8); Eosinophils # 0.1 10*3/uL (0.0-0.87); Hematocrit 26.4 VOL% (35.7-47.0); Hemoglobin 8.3 GM/DL (12.0-16.0); Immature Granulocytes % 3.3 %; Immature Granulocytes Absolute 0.16 #; Lymphocytes # 0.7 10*3/uL (1.4-4.0); Lymphocytes % 14.2 % (21.3-54.2); Mean Corpuscular HGB Conc 31.4 GM/DL (32-36); Mean Corpuscular Volume 103.9 FL (87-102); Mean Platelet Volume 11.1 FL (9.6-12.0); Monocytes # 0.2 10*3/uL (0.11-0.8); Neutrophils % 77.1 % (38.7-73.9); Platelet Count 141 T/CUMM (130-400); Red Blood Count 2.54 MC/CUMM (3.8-5.5); White Blood Count 4.8 T/CUMM (4-12)
[2022-10-20 07:50] VITALS: BP 146/90
[2022-10-20] MEDS: AMITRIPTYLINE 25 MG TABLET PO SCH (09:45)
[2022-10-20] MEDS: CARBIDOPA/LEVODOPA 25-100 MG TABLET PO SCH (09:45)
[2022-10-20] MEDS: GLIMEPIRIDE 2 MG TABLET PO SCH (09:45)
[2022-10-20] MEDS: MAGNESIUM OXIDE 400 MG TABLET PO SCH (09:45)
[2022-10-20] MEDS: PANTOPRAZOLE 40 MG TABLET PO SCH (09:45)
[2022-10-20] MEDS: DOCUSATE SODIUM 100 MG CAPSULE PO SCH (09:45)
[2022-10-20] MEDS: busPIRone 5 MG TABLET PO SCH (09:45)
[2022-10-20] MEDS: ACETAMINOPHEN 325 MG TABLET PO PRN (09:45)
[2022-10-20] MEDS: BUDESONIDE/FORMOTEROL 80-4.5 INHALER 6.9 GM INH SCH (09:48)
[2022-10-20] MEDS: cefTRIAXone 1,000 MG in SODIUM CHLORIDE 0.9% 100 ML IV SCH (10:17)
[2022-10-20] MEDS: AZITHROMYCIN INJ 250 MG in SODIUM CHLORIDE 0.9% 250 ML IV SCH (10:18)
== END 2022-10-20 11:08 | disposition home or self-care (01) | DRG 689 ==
LOC: N.ED 17:21 → N.EDINP 19:24 → N.TELEN 20:53
PROVIDERS: ADMIT Family Medicine; ATTEND Family Medicine